=== PATIENT | female | born 1950 | race Caucasian/White ===

== ENCOUNTER 2020-06-17 14:46 | Outpatient (REF) | payer OTHER, SELFPAY ==
[2020-06-18 08:57] LABS: COVID-19 Test Negative (Negative)
== END 2020-06-17 14:47 | disposition home or self-care (01) ==
LOC: HO.EMPCOV 14:46
PROVIDERS: PCP Internal Medicine; Visit Provider Internal Medicine
DX: Z20.828 Contact with and (suspected) exposure to other viral communicable diseases (principal)
CPT/HCPCS: 87635; C9803

== ENCOUNTER 2020-09-05 13:00 | Outpatient (REF) | payer OTHER, SELFPAY ==
[2020-09-05 13:23] LABS: COVID-19 Test Negative (Negative)
== END 2020-09-05 13:01 | disposition home or self-care (01) ==
LOC: HO.EMPCOV 13:00
PROVIDERS: Visit Provider Internal Medicine
DX: Z20.822 Contact with and (suspected) exposure to COVID-19 (principal)
CPT/HCPCS: 36415; 87635; C9803

== ENCOUNTER → 2020-12-22 14:32 | Outpatient (BNVA) | payer OTHER, SELFPAY | PROVIDERS: PCP Internal Medicine; Visit Provider Internal Medicine | CPT/HCPCS: 99203 ==

== ENCOUNTER 2021-06-19 15:05 | Outpatient (RCR) | payer OTHER, SELFPAY ==
[2021-06-19 15:11] VITALS: BP 131/75; PULSE 93
== END 2021-08-03 13:31 | disposition home or self-care (01) ==
LOC: HO.PT 15:05
PROVIDERS: PCP Internal Medicine; Visit Provider Nurse Practitioner
DX: S76.011D Strain of muscle, fascia and tendon of right hip, subsequent encounter (principal); Z96.641 Presence of right artificial hip joint
CPT/HCPCS: 97110; 97140; 97161

== ENCOUNTER 2021-07-25 07:47 | Outpatient (REF) | payer OTHER, SELFPAY | END 2021-07-25 07:48 | disposition home or self-care (01) | LOC: HO.LAB 07:47 | PROVIDERS: Visit Provider Internal Medicine | DX: Z20.822 Contact with and (suspected) exposure to COVID-19 (principal) | CPT/HCPCS: U0003; U0005 ==

== ENCOUNTER 2023-01-01 09:48 | Outpatient (REF) | payer OTHER, SELFPAY ==
--- NOTE | ~2023-01-01 | MR_ITS ---
EXAMINATION: MR BRAIN WITHOUT AND WITH CONTRAST CLINICAL INFORMATION: Right-sided acoustic neuroma. Vertigo. COMPARISON: None available. TECHNIQUE: Multiplanar, multisequence MRI of the brain was obtained using a skull base protocol without and following the administration of 8 mL of Gadavist intravenous contrast. FINDINGS: No focal restricted diffusion is demonstrated to suggest acute or subacute cerebral ischemia. No evidence of acute or chronic hemorrhagic products on heme-sensitive imaging. Scattered and partially confluent periventricular, deep white matter, and brainstem T2 FLAIR hyperintensities consistent with mild to moderate underlying microangiopathy. Proportional prominence of the ventricles and sulcal spaces without evidence of obstructive hydrocephalus. No abnormal mass effect. No midline shift. Normal appearance of the pituitary gland. Normal positioning of the cerebellar tonsils. No mass of the cerebellopontine angles. Normal appearance of the cranial nerve V, VII, and VIII nerve roots. No edema or vascular loops near the nerve root entry sites. Normal appearance of the internal auditory canals without enhancing mass lesions. No abnormal enhancement along the course of the facial nerves bilaterally. Normal appearance of the labyrinthine structures without loss of T2 signal or abnormal enhancement. Normal arterial and venous vascular flow voids are present. No abnormal intracranial contrast enhancement. Normal, homogeneous marrow signal. Mild mucosal thickening of the paranasal sinuses. Moderate rightward nasal septal deviation with spurring. No signal abnormalities within the mastoids. Moderate left and mild right degenerative arthropathy of the temporomandibular joints. MR/MR head/brain wo/w con IMPRESSION: 1. No acute intracranial abnormalities. No abnormal intracranial enhancement. 2. Mild to moderate underlying microangiopathy and generalized cerebral volume loss. 3. No additional MRI abnormalities to explain the patient's symptoms.
== END 2023-01-01 09:49 | disposition home or self-care (01) ==
LOC: HO.MRI 09:48
PROVIDERS: PCP Internal Medicine; Visit Provider Otolaryngology
DX: D33.3 Benign neoplasm of cranial nerves (principal); H81.4 Vertigo of central origin
CPT/HCPCS: 70553; A9585

== ENCOUNTER 2024-04-16 13:25 | Outpatient (REF) | payer OTHER, SELFPAY ==
--- NOTE | ~2024-04-16 | MM_ITS ---
EXAMINATION: MM SCREENING DIGITAL BREAST TOMOSYNTHESIS, BILATERAL CLINICAL INFORMATION: Screening. Asymptomatic. COMPARISON: Mammography: Comparison is made with available priors TECHNIQUE: Digital breast mammography with tomosynthesis is performed in both the craniocaudal and mediolateral oblique views along with computer-aided detection (CAD). FINDINGS: There are scattered areas of fibroglandular density (ACR BI-RADS breast composition Category b). There are no significant masses, abnormal calcifications, or other abnormalities. MM/MM tomosynthesis screening BI IMPRESSION: No mammographic evidence of malignancy. ASSESSMENT: BI-RADS BI-RADS 1 - Negative RECOMMENDATION: Routine annual mammography screening. 1 year F/U This examination should not preclude the clinical evaluation of a suspicious palpable abnormality. This patient's information was entered into a reminder system with a target due date for their next mammogram. Electronically signed by: Lamar Reynoso DO 04/29/2024 08:22 AM EDT
--- NOTE | ~2024-04-16 | MM_ITS ---
EXAMINATION: BONE DENSITOMETRY CLINICAL INDICATION: Age-related osteoporosis. COMPARISON: This is the patient's baseline examination. TECHNIQUE: Using a [employer] DXA System (software version: 13.1) manufactured by [employer], dual-energy x-ray absorptiometry was performed of the lumbar spine and left hip. The images are of good technical quality. Summary results are attached. FINDINGS: LEFT FEMUR, NECK: BMD 0.702 g/cm2, Z-score -0.7, T-score -2.4, osteopenia. LEFT FEMUR, TOTAL: BMD 0.829 g/cm2, Z-score 0.1, T-score -1.4, osteopenia. AP SPINE L1-L4: BMD 0.763 g/cm2, Z-score -2.0, T-score -3.5, osteoporosis. IDENTIFIED RISK FACTORS: Menopause, hysterectomy, history of fracture (adult), bilateral oophorectomy, thiazide. HISTORY OF FRACTURE: Other. MEDICATIONS: Multivitamin, vitamin D. MM/XR DEXA axial skeleton IMPRESSION: 1. DIAGNOSIS: Osteoporosis based on the lowest T-score value of -3.5 in the lumbar spine applying World Health Organization criteria. 2. 10-YEAR FRACTURE RISK PREDICTION, FRAX: According to the guidelines, FRAX calculation should only be performed on patients in the osteopenia bone density category. Therefore, FRAX was not performed on this patient. 3. Treatment Recommendations: NOF guidelines recommend consideration for treatment in postmenopausal women and men age 50 and older presenting with the following: -A hip or vertebral (clinical or morphometric) fracture. -T-score less than or equal to -2.5 at the femoral neck or spine after appropriate evaluation to exclude secondary causes. -Low bone mass at the hip or spine and a 10-year fracture probability by FRAX of greater than or equal to 3% for hip fracture or greater than or equal to 20% for major osteoporotic fracture based on the [place] adapted WHO algorithm. 4. Other Recommendations: All treatment decisions require clinical judgment and consideration of individual patient factors, including patient preferences, comorbidities, previous drug use, risk factors not captured in the FRAX model (e.g. frailty, falls, vitamin D deficiency, increased bone turnover, interval significant decline in bone density) and possible under or overestimation of fracture risk by FRAX. Additional medical evaluation for secondary cause of low bone mineral density may be appropriate. FUTURE SCAN RECOMMENDATION: People with diagnosed cases of osteoporosis or at high risk for fracture should have regular bone mineral density tests. For patients eligible for Medicare, routine testing is allowed once every 2 years. The testing frequency can be increased to one year for patients who have rapidly progressing disease, those who are receiving or discontinuing medical therapy to restore bone mass, or have additional risk factors. Electronically signed by: Sasha Purdy MD 05/05/2024 08:38 AM EDT
== END 2024-04-16 13:26 | disposition home or self-care (01) ==
LOC: HO.MAMMO 13:25
PROVIDERS: PCP Internal Medicine; Visit Provider Physician Assistant
DX: Z12.31 Encounter for screening mammogram for malignant neoplasm of breast (principal); M81.0 Age-related osteoporosis without current pathological fracture
CPT/HCPCS: 77063; 77067; 77080

== ENCOUNTER → 2024-04-16 13:45 | Outpatient (BNV) | payer OTHER, SELFPAY | PROVIDERS: PCP Internal Medicine; Visit Provider Internal Medicine | DX: Z12.31 Encounter for screening mammogram for malignant neoplasm of breast (principal) | CPT/HCPCS: 77063; 77067 ==

== ENCOUNTER → 2025-04-22 13:30 | Outpatient (BNV) | payer OTHER, SELFPAY | PROVIDERS: PCP Obstetrics & Gynecology; Visit Provider Internal Medicine | DX: Z12.31 Encounter for screening mammogram for malignant neoplasm of breast (principal) | CPT/HCPCS: 77063; 77067 ==

== ENCOUNTER 2025-04-22 13:45 | Outpatient (REF) | payer OTHER, SELFPAY ==
--- OUTSIDE RECORDS SUMMARY | 2024-11-24 10:00 | XMS_ITS ---
Author Organization [facility] [address] Address [address] [place] [address] Care Team Providers Care Machine Spring Former Name Role Phone DENISA COLLINS Unavailable [phone] REASON FOR VISIT 3 week f/u Encounters Encounter Location Date Provider Diagnosis [facility] [address] [place] [address] 11/24/2024 DENISA COLLINS Plan Of Treatment Next Appt Details Provider Name:DENISABrittney COLLINS, 04/28/2025 11:30:00 AM, [address] , [place], [address], Progress Notes * TAVO ERICAOB:1950 (75 yo F)Acc No.[id number]:11/24/2024 Progress Notes Patient: ORA WETZEL Provider: Nitin BOLES PA-C :1950 A ge:74 Y S ex:Female Date:11/24/2024 Address:[address] [id number] Subjective: * Chief Complaints: * 1 . 3 week f/u. * Medical History: Objective: * Vitals: Assessment: Plan: * Treatment: * Images: Billing Information: * Visit Code: * Procedure Codes: Care Plan Details* * Electronic signature of FRANKLIN COLLINS PA-C on 04/22/2025 at 06:16 PM EDT Sign off status: Pending * Provider: Nitin BOLES PA-C Date: 0 11/24/2024 Generated for Justin leone/Arline/Hilton on: 0 04/22/2025 06:16 PM EDT
--- OUTSIDE RECORDS SUMMARY | 2025-02-08 10:15 | XMS_ITS ---
Author Organization [facility] [address] Address [address] [place] [address] Care Team Providers Care Suture Gauger Name Role Phone DENISA COLLINS [phone] Encounters Encounter Location Date Provider Diagnosis [facility] [address] [place] [address] 02/08/2025 DENISA COLLINS Plan Of Treatment Next Appt Details Provider Name:DENISA COLLINS, 04/28/2025 11:30:00 AM, [address], [place], [address], Progress Notes * TAVO ERICAOB:1950 (75 yo F)Acc No.[id number]:02/08/2025 Progress Notes Patient: ORA WETZEL Provider: Nitin BOLES PA-C :1950 A ge:75 Y S ex:Female Date:02/08/2025 Address:[address], [id number] Subjective: * Chief Complaints: * * Medical History: Objective: * Vitals: Assessment: Plan: * Treatment: * Images: Billing Information: * Visit Code: * Procedure Codes: Care Plan Details* * Electronic signature of FRANKLIN COLLINS PA-C on 04/22/2025 at 06:16 PM EDT Sign off status: Pending * Provider: Nitin BOLES PA-C Date: 0 02/08/2025 Generated for Justin leone/Arline/Harrysmitting on: 0 04/22/2025 06:16 PM EDT
--- OUTSIDE RECORDS SUMMARY | 2025-02-16 06:45 | XMS_ITS ---
Author Organization [facility] [address] Address [address] [place] [address] Care Team Providers Care Offline Cutter Name Role Phone DENISA COLLINS Unavailable [phone] Medications Medication SIG (Take, Route, Frequency, Duration) Notes Start Date End Date Status Lisinopril 10 MG TAKE 1 TABLET BY MOUTH EVERY OTHER DAY FOR 90 DAYS; Duration: 90 Active Albuterol Sulfate HFA 108 (90 Base) MCG/ACT 1 puff as needed Inhalation every 4 hrs; Duration: 30 days Active Pantoprazole Sodium 40 MG TAKE 1 TABLET BY MOUTH EVERY DAY; Duration: 90 Active buPROPion HCl ER (XL) 300 MG 1 tablet in the morning Orally Once a day; Duration: 90 days Active hydroCHLOROthiazide 12.5 MG 1 tablet in the morning Oral Once a day; Duration: 90 days EOD alternate with lisinopril Active Mirabegron ER 50 MG 1 tablet Orally Once a day Active Alendronate Sodium 70 MG 1 tablet 30 minutes before the first food, beverage or medicine of the day with plain water Orally once weekly; Duration: 90 days 05/07/2024 Active Multi Vitamin Daily - 1 tablet Orally Once a day Active Encounters Encounter Location Date Provider Diagnosis [facility] [address] [place] [address] 02/16/2025 DENISA COLLINS Plan Of Treatment Next Appt Details Provider Name:DENISA COLLINS, 04/28/2025 11:30:00 AM, [address], [place], [address], Progress Notes * ERICA VOOB:1950 (75 yo F)Acc No.[id number]:02/16/2025 Progress Notes Patient: ORA WETZEL Provider: Narendra BOLES PA-C :1950 A ge:75 Y S ex:Female Date:02/16/2025 Address:[address] [place] [address] , [facility], [id number] Subjective: * Chief Complaints: * * Medical History: * Medications: T aking Alendronate Sodium 70 MG Tablet 1 tablet 30 minutes before the first food, beverage or medicine of the day with plain water Orally once weekly , Taking Mirabegron ER 50 MG Tablet Extended Release 24 Hour 1 tablet Orally Once a day , Taking Multi Vitamin Daily - Tablet 1 tablet Orally Once a day , Taking Lisinopril 10 MG Tablet TAKE 1 TABLET BY MOUTH EVERY OTHER DAY FOR 90 DAYS , Taking Pantoprazole Sodium 40 MG Tablet Delayed Release TAKE 1 TABLET BY MOUTH EVERY DAY , Taking hydroCHLOROthiazide 12.5 MG Tablet 1 tablet in the morning Oral Once a day , Notes to Pharmacist: EOD alternate with lisinopril, Taking buPROPion HCl ER (XL) 300 MG Tablet Extended Release 24 Hour 1 tablet in the morning Orally Once a day , Taking Albuterol Sulfate HFA 108 (90 Base) MCG/ACT Aerosol Solution 1 puff as needed Inhalation every 4 hrs Objective: * Vitals: Assessment: Plan: * Treatment: * Procedure Codes: 9 9199 NO SHOW OFFICE VISIT * Images: Billing Information: * Visit Code: * Procedure Codes: 55314 NO SHOW OFFICE VISIT. Care Plan Details* * Electronic signature of FRANKLIN COLLINS PA-C on 04/22/2025 at 06:16 PM EDT Sign off status: Pending * Provider: Narendra BOLES PA-C Date: 0 02/16/2025 Generated for Justin leone/Arline/Hilton on: 04/22/2025 06:16 PM EDT
--- OUTSIDE RECORDS SUMMARY | 2025-04-22 18:17 | XMS_ITS | Patient Health Record ---
Author Organization [facility] [address] Address [address] [place] [address] Care Team Providers Care Baggage And Mail Agent Name Role Phone DENISA COLLINS Unavailable [phone] MORE WALDEN Unavailable [phone] JERRICAROBERT Gilliam Unavailable [phone] Allergies Allergen (clinical drug ingredient) Drug/Non Drug Allergy documented on EMR Reaction Allergy Type Onset Date Status seasonal (uncoded) Unknown Allergy A ctive Results Component Value Reference Range Notes Comp. Metabolic Panel (14)-3 [id number] Reviewed date:10/07/2024 09:45:39 AM Interpretation: Performing Lab:[facility], [address] [place] [address], [place], Phone - [phone], Director - Joseph Notes/Report: Glucose 89 70-99 mg/dL BUN 22 8-27 mg/dL Creatinine 1.07 0.57-1.00 mg/dL eGFR 55 >59 mL/min/1.73 BUN/Creatinine Ratio 21 12-28 Sodium 137 134-144 mmol/L Potassium 4.4 3.5-5.2 mmol/L Chloride 100 96-106 mmol/L Carbon Dioxide, Total 24 20-29 mmol/L Calcium 8.7 8.7-10.3 mg/dL Protein, Total 6.2 6.0-8.5 g/dL Albumin 3.9 3.8-4.8 g/dL Globulin, Total 2.3 1.5-4.5 g/dL Bilirubin, Total <0.2 0.0-1.2 mg/dL Alkaline Phosphatase 67 44-121 IU/L AST (SGOT) 18 0-40 IU/L ALT (SGPT) 15 0-32 IU/L Lipid Panel-[id number] Reviewed date:10/07/2024 09:48:42 AM Interpretation: Performing Lab:[facility], [address] [place] [address], Phone - [phone], Director - MDJodry Notes/Report: Cholesterol, Total 201 100-199 mg/dL Triglycerides 116 0-149 mg/dL HDL Cholesterol 60 >39 mg/dL VLDL Cholesterol Colin 21 5-40 mg/dL LDL Chol Calc (NIH) 120 0-99 mg/dL Hemoglobin C0n-[id number] Reviewed date:10/07/2024 09:45:56 AM Interpretation: Performing Lab:[facility], [address] [place] [address], Phone - [phone], Director - MDJodry Notes/Report: Hemoglobin A1c 5.7 4.8-5.6 % . Prediabetes: 5.7 - 6.4 Diabetes: >6.4 Glycemic control for adults with diabetes: <7.0 Comp. Metabolic Panel (14)-3 Reviewed date:06/15/2024 11:01:47 AM Interpretation: Performing Lab:[facility], [address] [place] [address], Phone - [phone], Director - MDJodry Notes/Report: Glucose 92 70-99 mg/dL BUN 16 8-27 mg/dL Creatinine 1.12 0.57-1.00 mg/dL eGFR 52 >59 mL/min/1.73 BUN/Creatinine Ratio 14 12-28 Sodium 136 134-144 mmol/L Potassium 4.6 3.5-5.2 mmol/L Chloride 98 96-106 mmol/L Carbon Dioxide, Total 24 20-29 mmol/L Calcium 9.1 8.7-10.3 mg/dL Protein, Total 6.3 6.0-8.5 g/dL Albumin 4.0 3.8-4.8 g/dL Globulin, Total 2.3 1.5-4.5 g/dL Bilirubin, Total 0.3 0.0-1.2 mg/dL Alkaline Phosphatase 96 44-121 IU/L AST (SGOT) 18 0-40 IU/L ALT (SGPT) 12 0-32 IU/L Lipid Panel-[id number] Reviewed date:06/05/2024 11:46:55 AM Interpretation: Performing Lab:[facility] [place], [address] [place] [address], Phone - [phone], Director - Joseph Notes/Report: Cholesterol, Total 263 100-199 mg/dL Triglycerides 138 0-149 mg/dL HDL Cholesterol 71 >39 mg/dL VLDL Cholesterol Colin 24 5-40 mg/dL LDL Chol Calc ([facility]) 168 0-99 mg/dL CBC With Differential/Platel et-[id number] Reviewed date:06/11/2024 11:41:38 AM Interpretation: Performing Lab:[facility] [place], [address] [place] [address], Phone - [phone], Director - Joseph Notes/Report: WBC 4.7 3.4-10.8 x10E3/uL RBC 3.98 3.77-5.28 x10E6/uL Hemoglobin 11.6 11.1-15.9 g/dL Hematocrit 36.4 34.0-46.6 % MCV 92 79-97 fL MCH 29.1 26.6-33.0 pg MCHC 31.9 31.5-35.7 g/dL RDW 12.8 11.7-15.4 % Platelets 238 150-450 x10E3/uL Neutrophils 64 Not Estab. % Lymphs 23 Not Estab. % Monocytes 9 Not Estab. % Eos 3 Not Estab. % Basos 1 Not Estab. % Neutrophils (Absolute) 3.0 1.4-7.0 x10E3/uL Lymphs (Absolute) 1.1 0.7-3.1 x10E3/uL Monocytes(Absolute) 0.4 0.1-0.9 x10E3/uL Eos (Absolute) 0.1 0.0-0.4 x10E3/uL Baso (Absolute) 0.1 0.0-0.2 x10E3/uL Immature Granulocytes 0 Not Estab. % Immature Grans (Abs) 0.0 0.0-0.1 x10E3/uL Urinalysis, Complete-[id number] Reviewed date:06/15/2024 11:01:57 AM Interpretation: Performing Lab:[facility] [place], [address] [place] [address], Phone - [phone], Director - Joseph Notes/Report: Specific [place] 1.007 1.005-1.030 pH 8.5 5.0-7.5 Urine-Color Yellow Yellow Appearance Clear Clear WBC Esterase 1+ Negative Protein Negative Negative/Trace Glucose Negative Negative Ketones Negative Negative Occult Blood Negative Negative Bilirubin Negative Negative Urobilinogen,Semi-Qn 0.2 0.2-1.0 mg/dL Nitrite, Urine Negative Negative Microscopic Examination See below: Micr oscopic was indicated and was performed. WBC 6-10 0 - 5 /hpf RBC None seen 0 - 2 /hpf Epithelial Cells (non renal) 0-10 0 - 10 /hpf Casts None seen None seen /lpf Bacteria Many None seen/Few Reason For Referral No Information Medications Medication SIG (Take, Route, Frequency, Duration) Notes Start Date End Date Status Lisinopril 10 MG TAKE 1 TABLET BY MOUTH EVERY OTHER DAY; Duration: 90 Active Mirabegron ER 50 MG 1 tablet Orally Once a day Active Alendronate Sodium 70 MG 1 tablet 30 minutes before the first food, beverage or medicine of the day with plain water Orally once weekly; Duration: 90 days 05/07/2024 Active Multi Vitamin Daily - 1 tablet Orally Once a day Active Albuterol Sulfate HFA 108 (90 Base) MCG/ACT 1 puff as needed Inhalation every 4 hrs; Duration: 30 days Active buPROPion HCl ER (XL) 150 MG 1 tablet in the morning Orally Once a day; Duration: 30 days Active Pantoprazole Sodium 40 MG TAKE 1 TABLET BY MOUTH EVERY DAY; Duration: 90 Active hydroCHLOROthiazide 12.5 MG 1 tablet in the morning Oral Once a day; Duration: 90 days EOD alternate with lisinopril Active Immunizations Vaccine Route Administration Date Status Comme nts Influenza, high dose seasonal IM Intramuscular 04/10/2023 Administered Zoster Unknown 04/28/2019 Administered Zoster IM Intramuscular 04/12/2020 Administered Social History Tobacco Use: Social History Observation Description Date Details (start date - stop date) Never Smoker NA - NA Tobacco Use/Smoking Question Answer Notes Are you a nonsmoker Section Notes: Smoking: Patient was a smoker at age 18 and used to smoke half a pack per week. She years ago. Alcohol: Patient notes that she drinks 2x glasses of wine every night due to it helping Drugs: Patient denies any other drug use. Smoking: Patient was a smoker at age 18 and used to smoke half a pack per week. She quit years ago. Alcohol: Patient notes she has not drank any alcohol since a brief relapse on 04/25/22. Drugs: Patient denies any other drug use. Smoking: Patient was a smoker at age 18 and used to smoke half a pack per wee Drugs: Patient denies any other drug use.k. She quit years ago. Alcohol: sobriety Mar 17, 2023 Smoking: Patient was a smoker at age 18 and used to smoke half a pack per week. She years ago. Alcohol: Patient notes that she drinks 2x glasses of wine every night due to it helping Drugs: Patient denies any other drug use. Smoking: Patient was a smoker at age 18 and used to smoke half a pack per week. She years ago. Alcohol: Patient notes that she drinks 2x glasses of wine every night due to it helping Drugs: Patient denies any other drug use. Smoking: Patient was a smoker at age 18 and used to smoke half a pack per week. She years ago. Alcohol: Patient notes that she drinks 2x glasses of wine every night due to it helping Drugs: Patient denies any other drug use. Smoking: Patient was a smoker at age 18 and used to smoke half a pack per week. She years ago. Alcohol: Patient notes that she drinks 2x glasses of wine every night due to it helping Drugs: Patient denies any other drug use. Smoking: Patient was a smoker at age 18 and used to smoke half a pack per week. She years ago. Alcohol: Patient notes that she drinks 2x glasses of wine every night due to it helping Drugs: Patient denies any other drug use. Smoking: Patient was a smoker at age 18 and used to smoke half a pack per week. She years ago. Alcohol: Patient notes that she drinks 2x glasses of wine every night due to it helping Drugs: Patient denies any other drug use. Smoking: Patient was a smoker at age 18 and used to smoke half a pack per week. She years ago. Alcohol: Patient notes that she drinks 2x glasses of wine every night due to it helping Drugs: Patient denies any other drug use. Smoking: Patient was a smoker at age 18 and used to smoke half a pack per week. She years ago. Alcohol: Patient notes that she drinks 2x glasses of wine every night due to it helping Drugs: Patient denies any other drug use. Smoking: Patient was a smoker at age 18 and used to smoke half a pack per week. She years ago. Alcohol: Patient notes that she drinks 2x glasses of wine every night due to it helping Drugs: Patient denies any other drug use. Smoking: Patient was a smoker at age 18 and used to smoke half a pack per week. She quit years ago. Alcohol: Patient notes she has not drank any alcohol since a brief relapse on 04/25/22. Drugs: Patient denies any other drug use. Smoking: Patient was a smoker at age 18 and used to smoke half a pack per week. She quit years ago. Alcohol: Patient notes she has not drank any alcohol since a brief relapse on 04/25/22. Drugs: Patient denies any other drug use. Smoking: Patient was a smoker at age 18 and used to smoke half a pack per week. She quit years ago. Alcohol: Patient notes she has not drank any alcohol since a brief relapse on 04/25/22. Drugs: Patient denies any other drug use. Smoking: Patient was a smoker at age 18 and used to smoke half a pack per week. She quit years ago. Alcohol: Patient notes she has not drank any alcohol since a brief relapse on 04/25/22. Drugs: Patient denies any other drug use. Smoking: Patient was a smoker at age 18 and used to smoke half a pack per week. She quit years ago. Alcohol: Patient notes she has not drank any alcohol since a brief relapse on 04/25/22. Drugs: Patient denies any other drug use. Smoking: Patient was a smoker at age 18 and used to smoke half a pack per week. She quit years ago. Alcohol: Patient notes she has not drank any alcohol since a brief relapse on 04/25/22. Drugs: Patient denies any other drug use. Smoking: Patient was a smoker at age 18 and used to smoke half a pack per wee Drugs: Patient denies any other drug use.k. She quit years ago. Alcohol: Patient is celebrating 1 year complete of continuous sobriety Mar 17 of this year2023 Smoking: Patient was a smoker at age 18 and used to smoke half a pack per wee Drugs: Patient denies any other drug use.k. She quit years ago. Alcohol: sobriety Mar 17, 2023 Smoking: Patient was a smoker at age 18 and used to smoke half a pack per week. She years ago. Alcohol: Patient notes that she drinks 2x glasses of wine every night due to it helping Drugs: Patient denies any other drug use. Smoking: Patient was a smoker at age 18 and used to smoke half a pack per week. She years ago. Alcohol: Patient notes that she drinks 2x glasses of wine every night due to it helping Drugs: Patient denies any other drug use. Smoking: Patient was a smoker at age 18 and used to smoke half a pack per week. She years ago. Alcohol: Patient notes that she drinks 2x glasses of wine every night due to it helping Drugs: Patient denies any other drug use. Smoking: Patient was a smoker at age 18 and used to smoke half a pack per week. She years ago. Alcohol: Patient notes that she drinks 2x glasses of wine every night due to it helping Drugs: Patient denies any other drug use. Smoking: Patient was a smoker at age 18 and used to smoke half a pack per week. She years ago. Alcohol: Patient notes that she drinks 2x glasses of wine every night due to it helping Drugs: Patient denies any other drug use. Smoking: Patient was a smoker at age 18 and used to smoke half a pack per week. She quit years ago. Alcohol: Patient notes she has not drank any alcohol since a brief relapse on 04/25/22. Drugs: Patient denies any other drug use. Smoking: Patient was a smoker at age 18 and used to smoke half a pack per week. She quit years ago. Alcohol: Patient notes she has not drank any alcohol since a brief relapse on 04/25/22. Drugs: Patient denies any other drug use. Smoking: Patient was a smoker at age 18 and used to smoke half a pack per week. She quit years ago. Alcohol: Patient notes she has not drank any alcohol since a brief relapse on 04/25/22. Drugs: Patient denies any other drug use. Smoking: Patient was a smoker at age 18 and used to smoke half a pack per week. She quit years ago. Alcohol: Patient notes she has not drank any alcohol since a brief relapse on 04/25/22. Drugs: Patient denies any other drug use. Smoking: Patient was a smoker at age 18 and used to smoke half a pack per wee Drugs: Patient denies any other drug use.k. She quit years ago. Alcohol: sobriety Mar 17, 2023 Smoking: Patient was a smoker at age 18 and used to smoke half a pack per week. She years ago. Alcohol: Patient notes that she drinks 2x glasses of wine every night due to it helping Drugs: Patient denies any other drug use. Smoking: Patient was a smoker at age 18 and used to smoke half a pack per week. She years ago. Alcohol: Patient notes that she drinks 2x glasses of wine every night due to it helping Drugs: Patient denies any other drug use. Smoking: Patient was a smoker at age 18 and used to smoke half a pack per week. She years ago. Alcohol: Patient notes that she drinks 2x glasses of wine every night due to it helping Drugs: Patient denies any other drug use. Problems Problem Type SNOMED Code ICD Code Onset Dates Problem Status W/U Status Risk Notes Problem Pernicious anemia (21342199) Vitamin B12 deficiency anemia due to intrinsic factor deficiency (D51.0) Active confirmed Problem Obesity due to excess calories (218107215) Other obesity due to excess calories (E66.09) Active confirmed Problem Obesity (533918573) Other obesity (E66.8) Active confirmed Problem Obesity (228543669) Obesity, unspecified (E66.9) Active confirmed Problem Moderate recurrent major depression (05175254) Major depressive disorder, recurrent, moderate (F33.1) Active confirmed Problem Insomnia (745354071) Insomnia due to medical condition (G47.01) Active confirmed Problem Essential hypertension (93562881) Essential (primary) hypertension (I10) Active confirmed Problem Gastro-esophageal reflux disease with esophagitis (402540530) Gastro-esophage al reflux disease with esophagitis (K21.0) Active confirmed Patient with diagnosis of reflux diseaseCurrently stable with lifestyle modification Problem Screening for malignant neoplasm of breast (251474884) Encounter for screening mammogram for malignant neoplasm of breast (Z12.31) Active confirmed Problem Diabetes mellitus screening (990565200) Encounter for screening for diabetes mellitus (Z13.1) Active confirmed Problem Screening for osteoporosis (229077540) Encounter for screening for osteoporosis (Z13.820) Active confirmed Problem Obese class II (922569620684044) Body mass index (BMI) 35.0-35.9, adult (Z68.35) Active confirmed Problem Body mass index 35.00 to 39.99 (033985707167131) Body mass index (BMI) 36.0-36.9, adult (Z68.36) Active confirmed Problem Prediabetes (815232628) Prediabetes (R73.03) Active confirmed Problem Colon cancer screening (753239025) Colon cancer screening (Z12.11) Active confirmed Problem Vertigo (764929047) Vertigo (R42) Active confirmed Problem Hyperlipidaemia (34386450) Hyperlipidemia, unspecified hyperlipidemia type (E78.5) Active confirmed Problem Anxiety (03305677) Anxiety (F41.9) Active confirmed Problem Hyperlipoproteine yaritza (0131269) Acquired hyperlipoprotei nemia (E78.5) Active confirmed Problem Adult health examination (067324982) Adult general medical exam (Z00.00) Active confirmed Problem Depressive disorder (disorder) (45410486) Depression, unspecified depression type (F32.9) Active confirmed Patient with diagnosis of depression continue current medication currently stable Problem Seasonal allergy (192755949) Seasonal allergies (J30.2) Active confirmed Problem Tinnitus (94957689) Tinnitus, unspecified laterality (H93.19) Active confirmed Problem Arthralgia of the pelvic region and thigh (173497416) Hip pain, right (M25.551) Active confirmed Problem Hip pain (51892091) Hip pain (M25.559) Active confirmed Problem Diabetes mellitus screening (160080135) Diabetes mellitus screening (Z13.1) Active confirmed Problem Chronic kidney disease stage 3A (disorder) (424338772) Chronic kidney disease, stage 3a (N18.31) Active confirmed Problem Body mass index 30+ - obesity (533704570) Body mass index [BMI]30.0-30.9, adult (Z68.30) Active confirmed Problem Body mass index 30.00 to 34.99 (238338796042840) Body mass index [BMI] 33.0-33.9, adult (Z68.33) Active confirmed Problem Body mass index 30.00 to 34.99 (736255811370067) Body mass index [BMI] 34.0-34.9, adult (Z68.34) Active confirmed Problem Alcoholism (4209655) Alcoholism (F10.20) Active confirmed Problem Incontinence (94716355) Incontinence in female (R32) Active confirmed Problem Chronic kidney disease stage 3A (848458966) Stage 3a chronic kidney disease (N18.31) Active confirmed Problem Alcohol abuse (82338763) Alcohol abuse (F10.10) Active confirmed Problem Bilateral tinnitus (4721976053706) Tinnitus of both ears (H93.13) Active confirmed Problem Nondependent alcohol abuse in remission (719851261) History of alcohol abuse (F10.11) Active confirmed Problem Screening for osteoporosis (766758253) Screening for osteoporosis (Z13.820) Active confirmed Problem Asthma (636835555) Asthma (J45.909) Active confirmed Problem Abnormal metabolic state due to diabetes mellitus (433664673) Abnormal metabolic state due to diabetes mellitus (E11.9) Active confirmed Problem Vitamin D deficiency (14476271) Vitamin D3 deficiency (E55.9) Active confirmed Problem Unable to concentrate (finding) (94458446) Difficulty concentrating (R41.840) Active confirmed Problem Essential hypertension (64649580) Hypertension, essential (I10) Active confirmed Problem Osteoporosis (87387953) Osteoporosis (M81.0) Active confirmed Problem Gastroesophageal reflux disease (262498484) GERD (gastroesophage al reflux disease) (K21.9) Active confirmed Problem Hyperlipidemia (66614581) Hyperlipidemia (E78.5) Active confirmed Problem Obesity (980157144) Obesity (E66.9) Active confirmed Problem History of alcoholism (478469803) History of alcoholism (F10.21) Active confirmed Problem Postmenopausal osteoporosis (310918931) Postmenopausal osteoporosis (M81.0) Active confirmed Vital Signs Heart Rate 91 /min 10/26/2024 Respiratory Rate 16 /min 04/28/2024 Oximetry 98 % 10/26/2024 Blood pressure diastolic 72 mm Hg 10/26/2024 Height 61 in 10/26/2024 Blood pressure systolic 124 mm Hg 10/26/2024 Weight 152.6 lbs 10/07/2024 BMI 28.83 kg/m2 10/07/2024 Encounters Encounter Location Date Provider Diagnosis [facility] [address] [place], [place] 04/23/2024 MORE WALDEN [facility] [address] [place], [place] 05/26/2024 MORE WALDEN [facility] [address] [place] [address] 02/16/2025 [facility] [address] [place] [id number] 04/28/2024 MORE WALDEN History of alcohol a buse F10.11 ; Adult general medical exam Z00.00 ; Osteoporosis M81.0 ; Alcohol abuse F10.10 ; Hyperlipidemia E78.5 ; Incontinence in female R32 ; Major depressive disorder, recurrent, moderate F33.1 ; Postprocedural hypertension I97.3 ; Hypertension, essential I10 ; Stage 3a chronic kidney disease N18.31 and Alcoholism F10.[address] [facility] [address] [place], [place] 05/07/2024 DENISA COLLINS Postmenopausal osteo porosis M81.0 ; Depression, unspecified depression type F32.9 ; Anxiety F41.9 and History of alcoholism F10.[address] [facility] [address] [place], [place] 09/01/2024 DENISA COLLINS Postmenopausal osteo porosis M81.0 ; Wellness examination Z00.00 ; Depression, unspecified depression type F32.9 ; Anxiety F41.9 and History of alcoholism F10.[address] [facility] [address] [place], [place] 10/07/2024 DENISA COLLINS Anxiety F41.9 ; Musc le spasm M62.838 ; Postmenopausal osteoporosis M81.0 ; Depression, unspecified depression type F32.9 ; History of alcoholism F10.21 ; Adult general medical exam Z00.00 ; Chronic kidney disease, stage 3a N18.31 ; Acquired hyperlipoproteinemia E78.5 ; Diabetes mellitus screening Z13.1 ; Abnormal metabolic state due to diabetes mellitus E11.9 and Prediabetes R73.[address] [facility] [address] [place], [place] 10/26/2024 ROBERT JERRICA Left eye pain H57.12 and Hordeolum externum of left lower eyelid H00.[address] [facility] [address] [place], [place] 05/01/20[address] T[address]ITA WALDEN [facility] [address] [place], [place] 07/21/[address] WALDEN [facility] [address] [place], [place] 09/01/2024 TALSARITA WALDEN Chronic kidney disea se, stage 3a N18.31 ; Hyperlipidemia, unspecified hyperlipidemia type E78.5 and Encounter for screening for diabetes mellitus Z13.1 [facility] [address] [address] 10/26/2024 MORE WALDEN [facility] [address] [place] [address] 02/17/2025 DENISA COLLINS [facility] [address] [place] [address] 04/05/2025 DENISABrittney COLLINS [facility] [address] [place] [address] 12/22/2024 MORE WALDEN [facility] [address] [address] 02/06/2025 DENISA COLLINS Assessments Encounter Date Diagnosis (ICD Code) Assessment Notes Treatment Notes Treatment Clinical Notes Section Notes 04/28/2024 Adult general medica l exam (ICD-10 - Z00.00) Ora is a pleasant 74 year old female patient seen in office today following up for urinary frequency after receiving work up. #Incontinence in female - reports improvement on mirabegron. She will trial taking hydrochlorothiazide every other day to see if that allows her to sleep through the night. #Stage 3a Chronic Kidney Disease - CBC, CMP, UA, and lipid panel will be ordered. She understands that we need to verify that her kidneys are working properly. She will be called with any abnormal findings and follow up 05/05/24. #History of alcohol abuse - She is doing very well, and has been sober for over 1 year without relapse. She is very involved with AA, prays daily, and feels confident in and proud of her sobriety. #Osteoporosis - She received a DEXA scan and has ordered the results for the office. Should receive in next two weeks #Major Depressive Disorder - She will continue without the Vraylar, as her symptoms have improved with improved sleep quality. #Hypertension - She is well managed and will continue taking Lisinopril daily. HCTZ will be taken once every other day to reduce urinary frequency She will receive the MICC B12 shot today and the flu shot, both in office. She will f/u 04/824 to review lab work. 04/28/2024 History of alcohol abuse (ICD-10 - F10.11) Ora is a pleasant 74 year old female patient seen in office today following up for urinary frequency after receiving work up. #Incontinence in female - reports improvement on mirabegron. She will trial taking hydrochlorothiazide every other day to see if that allows her to sleep through the night. #Stage 3a Chronic Kidney Disease - CBC, CMP, UA, and lipid panel will be ordered. She understands that we need to verify that her kidneys are working properly. She will be called with any abnormal findings and follow up 05/05/24. #History of alcohol abuse - She is doing very well, and has been sober for over 1 year without relapse. She is very involved with AA, prays daily, and feels confident in and proud of her sobriety. #Osteoporosis - She received a DEXA scan and has ordered the results for the office. Should receive in next two weeks #Major Depressive Disorder - She will continue without the Vraylar, as her symptoms have improved with improved sleep quality. #Hypertension - She is well managed and will continue taking Lisinopril daily. HCTZ will be taken once every other day to reduce urinary frequency She will receive the MICC B12 shot today and the flu shot, both in office. She will f/u 04/824 to review lab work. 05/07/2024 Depression, unspecified depression type (ICD-10 - F32.9) Davonte 74-year-old female presents via telehealth to review bone density scan. # Osteoporosis of the spine, osteopenia of the left femur, and left hip. Start vitamin D and calcium, as well as alendronate once weekly. Discussed proper use, side effects, as well as risk factors to discontinue medication including but not limited to jaw pain. Will bone density 03/2024, will be due again 03/2026. # Asthma: Albuterol as needed # Hypertension: Continue lisinopril hydrochlorothiazide 05/09.5, # Depression: Continue bupropion 300 mg extended release # GERD: Continue pantoprazole 40 mg # Incontinence: Continue oxybutynin 5 mg and mirabegron for overactive bladder symptoms. Patient follow-up in July for complete physical, sooner as needed Patient is seen today via telehealth agreement, with consent of patient. I used the following telehealth technology (telephone/[facility]/ skype) during this visit This encounter is appropriate and reasonable under the circumstances given the patient's particular presentation. The patient has been advised of the potential risks and limitations of this mode of treatment Including but not limited to the absence of in person physical examination,and has agreed to be treated in a remote fashion in spite of this. Any and all patient questions have been answered. The patient also has been advised to contact this office for worsening conditions or problems and seek medical treatment and/or call 911 if the patient deems either necessary All quetsions answered to patients satisfaction. Patient verbalized understanding of diagnosis and treatments explained. To call sooner prior to next visit it any questions/concerns arise. Case discussed with collaborating physician Traci Walden who reviewed the assessment and plan. Chart, medications, labs, vital signs reviewed. Dictation was accomplished with the use of [employer] voice recognition software, prone to medical misidentifications and grammatical errors. This is unintentional and the practitioner does try to identify and correct these, but some could still be present. Please do not hesitate to contact practitioner for clarification. 05/07/2024 Postmenopausal osteoporosis (ICD-10 - M81.0) Pleasant 74-year-old female presents via telehealth to review bone density scan. # Osteoporosis of the spine, osteopenia of the left femur, and left hip. Start vitamin D and calcium, as well as alendronate once weekly. Discussed proper use, side effects, as well as risk factors to discontinue medication including but not limited to jaw pain. Will bone density 03/2024, will be due again 03/2026. # Asthma: Albuterol as needed # Hypertension: Continue lisinopril hydrochlorothiazide 05/09.5, # Depression: Continue bupropion 300 mg extended release # GERD: Continue pantoprazole 40 mg # Incontinence: Continue oxybutynin 5 mg and mirabegron for overactive bladder symptoms. Patient follow-up in July for complete physical, sooner as needed Patient is seen today via telehealth agreement, with consent of patient. I used the following telehealth technology (telephone/[facility]/ skype) during this visit This encounter is appropriate and reasonable under the circumstances given the patient's particular presentation. The patient has been advised of the potential risks and limitations of this mode of treatment Including but not limited to the absence of in person physical examination,and has agreed to be treated in a remote fashion in spite of this. Any and all patient questions have been answered. The patient also has been advised to contact this office for worsening conditions or problems and seek medical treatment and/or call 911 if the patient deems either necessary All quetsions answered to patients satisfaction. Patient verbalized understanding of diagnosis and treatments explained. To call sooner prior to next visit it any questions/concerns arise. Case discussed with collaborating physician Traci Walden who reviewed the assessment and plan. Chart, medications, labs, vital signs reviewed. Dictation was accomplished with the use of [employer] voice recognition software, prone to medical misidentifications and grammatical errors. This is unintentional and the practitioner does try to identify and correct these, but some could still be present. Please do not hesitate to contact practitioner for clarification. 09/01/2024 Wellness examination (ICD-10 - Z00.00) Patient is a pleasant 74-year-old female who presents the office for a complete physical exam. # Up-to-date on all vaccines, and routine screening. Will obtain colonoscopy record that she had in 2021 after positive Cologuard. Due for bone density in 2025. PHQ-9 completed in office today. Healthcare proxy completed 09/01/2024. # Alcoholism: Patient has been sober since February 2023. She is very pleased with progress and attends AA meetings once daily. 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 # Osteoporosis of the spine, osteopenia of the left femur, and left hip. Continue vitamin D and calcium, as well as alendronate once weekly. Patient been tolerating medication well Discussed proper use, side effects, as well as risk factors to discontinue medication including but not limited to jaw pain. Will bone density 03/2024, will be due again 03/2026. # Asthma: Albuterol as needed # Hyperlipidemia: Cholesterol 06/04/2020 4-63, LDL 168. Recommended cholesterol medications, patient not interested. Will repeat blood work. Discussed coronary calcium scan.History on simvastatin for which she tolerated well but discontinued because of weight loss. She would like to repeat values for labs, and then potentially initiate medication as needed.Clines coronary calcium scan at this time. # Hypertension: Continue lisinopril hydrochlorothiazide 05/09.5, Blood pressure stable # Depression: Continue bupropion 300 mg extended release, States is uncontrolled. Trialed Vraylar but it was too expensive for her insurance did not cover it. History on Celexa with minimal improvement. Will trial sertraline 25 mg, follow-up in 4 to 6 weeks. Discussed proper use, side effects.Declines therapy/psychiatry at this time. Does follow with AA daily. # GERD: Continue pantoprazole 40 mg # Incontinence: Continue oxybutynin 5 mg and mirabegron for overactive bladder symptoms. # Chronic kidney disease: Creatinine 1.12, GFR low at 52, will repeat blood work, consider Medications like Farxiga Follow-up in 6 weeks to assess efficacy/compliance of sertraline/blood work. Patient seen and examined. Comprehensive discussion was done on the following. 1. Nutrition: It is important to follow a healthy diet based on lots of vegetables and legumes and good fat. Avoid processed food and processed carbohydrates. Prepare your own meals. Read labels and avoid high fructose corn syrup, processed chemicals added to increase shelf life and preprepared meals. Avoid fast foods. Eat slowly and plan meals for a week. Try to count calories and be mindful of daily calorie intake. Get into the habit of keeping an eye on your weight by using an appropriate scale. Learn to log exercise and discussed fitness Apps like [employer] which can help keep log off calories taken versus calories burned. Local food should be preferred. Discussed Dirty Dozen Versus Clean Fifteen. Discussed healthy supplements like fish oil, Tumeric, Curcumin, Melatonin, Resveratrol, Probiotics, Vitamin-D, Alpha-Lipoic acid, Vitamin-D and coconut oil. 2. It is important to exercise regularly. Is a good habit to walk at least 30 minutes a day. Gentle weightlifting with standard precautions to protect the back. Finding activity like cycling or hiking and get into the habit of engaging in it. Stretching before and after the exercises important. It is also important to contact me if there are any problems like shortness of breath, chest pain, back pain and joint or muscle pain associated with the exercise. 3. Discussed age appropriate screening guidelines. Colonoscopy needs to start at age 50 with stool for occult blood as appropriate. There is a new test that can test for genetic abnormalities in the stool sample, Cologuard. This would not replace a colonoscopy but could be used as a screening tool for patients who do not want a colonoscopy. We discussed the importance of early detection of colon cancer. 4. Discussed current PSA screening. PSA screening can be done in most patients between age 50 and 65. However early detection of prostate cancer needs to carefully be balanced with complications with treatment. These include incontinence, impotence etc. Each patient should decide if they would like to have this test. 5. Discussed safe driving and no use of smart phone while driving 6. Age-appropriate immunizations were discussed. A tetanus booster is needed every 10 years. Flu vaccine is recommended every year just before the start of the flu season. Shingles vaccine is recommended after age 50 but not all insurances cover it. Pneumonia vaccine is given after age 65 unless there are certain comorbidities for which it is started earlier. 7. Diagnostic labs were discussed. These could include/not limited to CBC CMP and lipids with fasting blood glucose and insulin levels. Vitamin D and hemoglobin A1c testing might be appropriate. All quetsions answered to patients satisfaction. Patient verbalized understanding of diagnosis and treatments explained. To call sooner prior to next visit it any questions/concerns arise. Case discussed with collaborating physician Traci Walden who reviewed the assessment and plan. Chart, medications, labs, vital signs reviewed. Dictation was accomplished with the use of [employer] voice recognition software, prone to medical misidentifications and grammatical errors. This is unintentional and the practitioner does try to identify and correct these, but some could still be present. Please do not hesitate to contact practitioner for clarification. 09/01/2024 Postmenopausal osteoporosis (ICD-10 - M81.0) Patient is a pleasant 74-year-old female who presents the office for a complete physical exam. # Up-to-date on all vaccines, and routine screening. Will obtain colonoscopy record that she had in 2021 after positive Cologuard. Due for bone density in 2025. PHQ-9 completed in office today. Healthcare proxy completed 09/01/2024. # Alcoholism: Patient has been sober since February 2023. She is very pleased with progress and attends AA meetings once daily. 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 # Osteoporosis of the spine, osteopenia of the left femur, and left hip. Continue vitamin D and calcium, as well as alendronate once weekly. Patient been tolerating medication well Discussed proper use, side effects, as well as risk factors to discontinue medication including but not limited to jaw pain. Will bone density 03/2024, will be due again 03/2026. # Asthma: Albuterol as needed # Hyperlipidemia: Cholesterol 06/04/2020 4-63, LDL 168. Recommended cholesterol medications, patient not interested. Will repeat blood work. Discussed coronary calcium scan.History on simvastatin for which she tolerated well but discontinued because of weight loss. She would like to repeat values for labs, and then potentially initiate medication as needed.Clines coronary calcium scan at this time. # Hypertension: Continue lisinopril hydrochlorothiazide 05/09.5, Blood pressure stable # Depression: Continue bupropion 300 mg extended release, States is uncontrolled. Trialed Vraylar but it was too expensive for her insurance did not cover it. History on Celexa with minimal improvement. Will trial sertraline 25 mg, follow-up in 4 to 6 weeks. Discussed proper use, side effects.Declines therapy/psychiatry at this time. Does follow with AA daily. # GERD: Continue pantoprazole 40 mg # Incontinence: Continue oxybutynin 5 mg and mirabegron for overactive bladder symptoms. # Chronic kidney disease: Creatinine 1.12, GFR low at 52, will repeat blood work, consider Medications like Farxiga Follow-up in 6 weeks to assess efficacy/compliance of sertraline/blood work. Patient seen and examined. Comprehensive discussion was done on the following. 1. Nutrition: It is important to follow a healthy diet based on lots of vegetables and legumes and good fat. Avoid processed food and processed carbohydrates. Prepare your own meals. Read labels and avoid high fructose corn syrup, processed chemicals added to increase shelf life and preprepared meals. Avoid fast foods. Eat slowly and plan meals for a week. Try to count calories and be mindful of daily calorie intake. Get into the habit of keeping an eye on your weight by using an appropriate scale. Learn to log exercise and discussed fitness Apps like [employer] which can help keep log off calories taken versus calories burned. Local food should be preferred. Discussed Dirty Dozen Versus Clean Fifteen. Discussed healthy supplements like fish oil, Tumeric, Curcumin, Melatonin, Resveratrol, Probiotics, Vitamin-D, Alpha-Lipoic acid, Vitamin-D and coconut oil. 2. It is important to exercise regularly. Is a good habit to walk at least 30 minutes a day. Gentle weightlifting with standard precautions to protect the back. Finding activity like cycling or hiking and get into the habit of engaging in it. Stretching before and after the exercises important. It is also important to contact me if there are any problems like shortness of breath, chest pain, back pain and joint or muscle pain associated with the exercise. 3. Discussed age appropriate screening guidelines. Colonoscopy needs to start at age 50 with stool for occult blood as appropriate. There is a new test that can test for genetic abnormalities in the stool sample, Cologuard. This would not replace a colonoscopy but could be used as a screening tool for patients who do not want a colonoscopy. We discussed the importance of early detection of colon cancer. 4. Discussed current PSA screening. PSA screening can be done in most patients between age 50 and 65. However early detection of prostate cancer needs to carefully be balanced with complications with treatment. These include incontinence, impotence etc. Each patient should decide if they would like to have this test. 5. Discussed safe driving and no use of smart phone while driving 6. Age-appropriate immunizations were discussed. A tetanus booster is needed every 10 years. Flu vaccine is recommended every year just before the start of the flu season. Shingles vaccine is recommended after age 50 but not all insurances cover it. Pneumonia vaccine is given after age 65 unless there are certain comorbidities for which it is started earlier. 7. Diagnostic labs were discussed. These could include/not limited to CBC CMP and lipids with fasting blood glucose and insulin levels. Vitamin D and hemoglobin A1c testing might be appropriate. All quetsions answered to patients satisfaction. Patient verbalized understanding of diagnosis and treatments explained. To call sooner prior to next visit it any questions/concerns arise. Case discussed with collaborating physician Traci Walden who reviewed the assessment and plan. Chart, medications, labs, vital signs reviewed. Dictation was accomplished with the use of [employer] voice recognition software, prone to medical misidentifications and grammatical errors. This is unintentional and the practitioner does try to identify and correct these, but some could still be present. Please do not hesitate to contact practitioner for clarification. 09/01/2024 Chronic kidney disease, stage 3a (ICD-10 - N18.31) 10/07/2024 Anxiety (ICD-10 - F41.9) # Up-to-date on all vaccines, and routine screening. Will obtain colonoscopy record that she had in 2021 after positive Cologuard. Due for bone density in 2025. Healthcare proxy completed 09/01/2024. # Alcoholism: Patient has been sober since February 2023. She is very pleased with progress and attends AA meetings once daily. 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 # Osteoporosis of the spine, osteopenia of the left femur, and left hip. Continue vitamin D and calcium, as well as alendronate once weekly. Patient been tolerating medication well Discussed proper use, side effects, as well as risk factors to discontinue medication including but not limited to jaw pain. Will bone density 03/2024, will be due again 03/2026. # Asthma: Albuterol as needed # Hyperlipidemia: Cholesterol 06/04/2020 4-63, LDL 168. Recommended cholesterol medications, patient not interested. Repeat blood work 09/2024 showing total cholesterol 201. Patient is very pleased. Repeat in 4 months. Discussed coronary calcium scan.History on simvastatin for which she tolerated well but discontinued because of weight loss. She would like to repeat values for labs, and then potentially initiate medication as needed.Declines coronary calcium scan at this time. # Hypertension: Continue lisinopril hydrochlorothiazide 05/09.5, Blood pressure stable # Depression: Continue bupropion 300 mg extended release, States is uncontrolled. Trialed Vraylar but it was too expensive for her insurance did not cover it. History on Celexa with minimal improvement. Trialed sertraline 25 mg, discontinued after she experienced tremors. She is feeling better and not interested in any alternative but will trial HPA adapt. Discussed proper use, side effects.Declines therapy/psychiatry at this time. Does follow with AA daily. # GERD: Continue pantoprazole 40 mg # Incontinence: Continue oxybutynin 5 mg and mirabegron for overactive bladder symptoms. # Chronic kidney disease: Creatinine 1.12, GFR low at 52, Repeat blood work showing improved kidney function creatinine 1.0, GFR 55. Will repeat in 3 to 4 months. # Back spasm: No red flag symptoms. Trial low-dose muscle relaxer, massage, heat, lidocaine patches as needed. If no improvement consider imaging/PT. Patient understanding Follow-up in 3 to 4 months for repeat blood work, sooner as needed All quetsions answered to patients satisfaction. Patient verbalized understanding of diagnosis and treatments explained. To call sooner prior to next visit it any questions/concerns arise. Case discussed with collaborating physician Traci Walden who reviewed the assessment and plan. Chart, medications, labs, vital signs reviewed. Dictation was accomplished with the use of [employer] voice recognition software, prone to medical misidentifications and grammatical errors. This is unintentional and the practitioner does try to identify and correct these, but some could still be present. Please do not hesitate to contact practitioner for clarification. 10/07/2024 Muscle spasm (ICD-10 - M62.838) # Up-to-date on all vaccines, and routine screening. Will obtain colonoscopy record that she had in 2021 after positive Cologuard. Due for bone density in 2025. Healthcare proxy completed 09/01/2024. # Alcoholism: Patient has been sober since February 2023. She is very pleased with progress and attends AA meetings once daily. 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 # Osteoporosis of the spine, osteopenia of the left femur, and left hip. Continue vitamin D and calcium, as well as alendronate once weekly. Patient been tolerating medication well Discussed proper use, side effects, as well as risk factors to discontinue medication including but not limited to jaw pain. Will bone density 03/2024, will be due again 03/2026. # Asthma: Albuterol as needed # Hyperlipidemia: Cholesterol 06/04/2020 4-63, LDL 168. Recommended cholesterol medications, patient not interested. Repeat blood work 09/2024 showing total cholesterol 201. Patient is very pleased. Repeat in 4 months. Discussed coronary calcium scan.History on simvastatin for which she tolerated well but discontinued because of weight loss. She would like to repeat values for labs, and then potentially initiate medication as needed.Declines coronary calcium scan at this time. # Hypertension: Continue lisinopril hydrochlorothiazide 05/09.5, Blood pressure stable # Depression: Continue bupropion 300 mg extended release, States is uncontrolled. Trialed Vraylar but it was too expensive for her insurance did not cover it. History on Celexa with minimal improvement. Trialed sertraline 25 mg, discontinued after she experienced tremors. She is feeling better and not interested in any alternative but will trial HPA adapt. Discussed proper use, side effects.Declines therapy/psychiatry at this time. Does follow with AA daily. # GERD: Continue pantoprazole 40 mg # Incontinence: Continue oxybutynin 5 mg and mirabegron for overactive bladder symptoms. # Chronic kidney disease: Creatinine 1.12, GFR low at 52, Repeat blood work showing improved kidney function creatinine 1.0, GFR 55. Will repeat in 3 to 4 months. # Back spasm: No red flag symptoms. Trial low-dose muscle relaxer, massage, heat, lidocaine patches as needed. If no improvement consider imaging/PT. Patient understanding Follow-up in 3 to 4 months for repeat blood work, sooner as needed All quetsions answered to patients satisfaction. Patient verbalized understanding of diagnosis and treatments explained. To call sooner prior to next visit it any questions/concerns arise. Case discussed with collaborating physician Traci Walden who reviewed the assessment and plan. Chart, medications, labs, vital signs reviewed. Dictation was accomplished with the use of [employer] voice recognition software, prone to medical misidentifications and grammatical errors. This is unintentional and the practitioner does try to identify and correct these, but some could still be present. Please do not hesitate to contact practitioner for clarification. 10/26/2024 Hordeolum externum o f left lower eyelid (ICD-10 - H00.015) Constanza is a pleasant 74-year-old female who presents to the office today for an urgent visit. #Chalazion: At this time patient does have lower eyelid swelling with a punctum, erythema present on left lower eyelid. Ecchymoses present on patient's lower eyelid as well. Most likely vascular dilation from warm compresses, however consider lingering infection. If doxycycline and erythromycin do not clear infection consider CT of the orbits. Patient given handwritten prescription for both of her medications todayReassuring that patient does not have any hyphema, anterior chamber hemorrhage. Denies any vision changes or blurry vision. Encouraged to contact her eye doctor if she does not notice improvement by the end of the week. All questions have been answered to patient's satisfaction. Patient verbalized understanding of diagnosis and treatments explained. Advised to call sooner prior to next visit it any questions/concerns arise. Case discussed with Swetha MCCAULEY who reviewed the assessment and plan. Chart, medications, labs, vital signs reviewed. Dictation was accomplished with the use of [employer] voice recognition software, which is prone to medical misidentifications and grammatical errors. This are unintentional and the practitioner does try to identify and correct these, but some could still be present. Please do not hesitate to contact practitioner for clarification. 10/26/2024 Left eye pain (ICD-1 0 - H57.12) Constanza is a pleasant 74-year-old female who presents to the office today for an urgent visit. #Chalazion: At this time patient does have lower eyelid swelling with a punctum, erythema present on left lower eyelid. Ecchymoses present on patient's lower eyelid as well. Most likely vascular dilation from warm compresses, however consider lingering infection. If doxycycline and erythromycin do not clear infection consider CT of the orbits. Patient given handwritten prescription for both of her medications todayReassuring that patient does not have any hyphema, anterior chamber hemorrhage. Denies any vision changes or blurry vision. Encouraged to contact her eye doctor if she does not notice improvement by the end of the week. All questions have been answered to patient's satisfaction. Patient verbalized understanding of diagnosis and treatments explained. Advised to call sooner prior to next visit it any questions/concerns arise. Case discussed with Swetha MCCAULEY who reviewed the assessment and plan. Chart, medications, labs, vital signs reviewed. Dictation was accomplished with the use of [employer] voice recognition software, which is prone to medical misidentifications and grammatical errors. This are unintentional and the practitioner does try to identify and correct these, but some could still be present. Please do not hesitate to contact practitioner for clarification. 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 Will obtain colonoscopy record that she had in 2021 after positive Cologuard. Due for bone density in 2025. Healthcare proxy completed 09/01/2024. # Alcoholism: Patient has been sober since February 2023. She is very pleased with progress and attends AA meetings once daily. 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 # Osteoporosis of the spine, osteopenia of the left femur, and left hip. Continue vitamin D and calcium, as well as alendronate once weekly. Patient been tolerating medication well Discussed proper use, side effects, as well as risk factors to discontinue medication including but not limited to jaw pain. Will bone density 03/2024, will be due again 03/2026. # Asthma: Albuterol as needed # Hyperlipidemia: Cholesterol 06/04/2020 4-63, LDL 168. Recommended cholesterol medications, patient not interested. Repeat blood work 09/2024 showing total cholesterol 201. Patient is very pleased. Repeat in 4 months. Discussed coronary calcium scan.History on simvastatin for which she tolerated well but discontinued because of weight loss. She would like to repeat values for labs, and then potentially initiate medication as needed.Declines coronary calcium scan at this time. # Hypertension: Continue lisinopril hydrochlorothiazide 05/09.5, Blood pressure stable # Depression: Continue bupropion 300 mg extended release, States is uncontrolled. Trialed Vraylar but it was too expensive for her insurance did not cover it. History on Celexa with minimal improvement. Trialed sertraline 25 mg, discontinued after she experienced tremors. She is feeling better and not interested in any alternative but will trial HPA adapt. Discussed proper use, side effects.Declines therapy/psychiatry at this time. Does follow with AA daily. # GERD: Continue pantoprazole 40 mg # Incontinence: Continue oxybutynin 5 mg and mirabegron for overactive bladder symptoms. # Chronic kidney disease: Creatinine 1.12, GFR low at 52, Repeat blood work showing improved kidney function creatinine 1.0, GFR 55. Will repeat in 3 to 4 months. # Back spasm: No red flag symptoms. Trial low-dose muscle relaxer, massage, heat, lidocaine patches as needed. If no improvement consider imaging/PT. Patient understanding Follow-up in 3 to 4 months for repeat blood work, sooner as needed All quetsions answered to patients satisfaction. Patient verbalized understanding of diagnosis and treatments explained. To call sooner prior to next visit it any questions/concerns arise. Case discussed with collaborating physician Traci Walden who reviewed the assessment and plan. Chart, medications, labs, vital signs reviewed. Dictation was accomplished with the use of [employer] voice recognition software, prone to medical misidentifications and grammatical errors. This is unintentional and the practitioner does try to identify and correct these, but some could still be present. Please do not hesitate to contact practitioner for clarification. 09/01/2024 Hyperlipidemia, unspecified hyperlipidemia type (ICD-10 - E78.5) 05/07/2024 Anxiety (ICD-10 - F41.9) Pleasant 74-year-old female presents via telehealth to review bone density scan. # Osteoporosis of the spine, osteopenia of the left femur, and left hip. Start vitamin D and calcium, as well as alendronate once weekly. Discussed proper use, side effects, as well as risk factors to discontinue medication including but not limited to jaw pain. Will bone density 03/2024, will be due again 03/2026. # Asthma: Albuterol as needed # Hypertension: Continue lisinopril hydrochlorothiazide 05/09., # Depression: Continue bupropion 300 mg extended release # GERD: Continue pantoprazole 40 mg # Incontinence: Continue oxybutynin 5 mg and mirabegron for overactive bladder symptoms. Patient follow-up in July for complete physical, sooner as needed Patient is seen today via telehealth agreement, with consent of patient. I used the following telehealth technology (telephone/[facility]/ [employer]) during this visit This encounter is appropriate and reasonable under the circumstances given the patient's particular presentation. The patient has been advised of the potential risks and limitations of this mode of treatment Including but not limited to the absence of in person physical examination,and has agreed to be treated in a remote fashion in spite of this. Any and all patient questions have been answered. The patient also has been advised to contact this office for worsening conditions or problems and seek medical treatment and/or call 911 if the patient deems either necessary All quetsions answered to patients satisfaction. Patient verbalized understanding of diagnosis and treatments explained. To call sooner prior to next visit it any questions/concerns arise. Case discussed with collaborating physician Traci Walden who reviewed the assessment and plan. Chart, medications, labs, vital signs reviewed. Dictation was accomplished with the use of [employer] voice recognition software, prone to medical misidentifications and grammatical errors. This is unintentional and the practitioner does try to identify and correct these, but some could still be present. Please do not hesitate to contact practitioner for clarification. 09/01/2024 Depression, unspecified depression type (ICD-10 - F32.9) Patient is a pleasant 74-year-old female who presents the office for a complete physical exam. # Up-to-date on all vaccines, and routine screening. Will obtain colonoscopy record that she had in 2021 after positive Cologuard. Due for bone density in 2025. PHQ-9 completed in office today. Healthcare proxy completed 09/01/2024. # Alcoholism: Patient has been sober since February 2023. She is very pleased with progress and attends AA meetings once daily. 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 # Osteoporosis of the spine, osteopenia of the left femur, and left hip. Continue vitamin D and calcium, as well as alendronate once weekly. Patient been tolerating medication well Discussed proper use, side effects, as well as risk factors to discontinue medication including but not limited to jaw pain. Will bone density 03/2024, will be due again 03/2026. # Asthma: Albuterol as needed # Hyperlipidemia: Cholesterol 06/04/2020 4-63, LDL 168. Recommended cholesterol medications, patient not interested. Will repeat blood work. Discussed coronary calcium scan.History on simvastatin for which she tolerated well but discontinued because of weight loss. She would like to repeat values for labs, and then potentially initiate medication as needed.Clines coronary calcium scan at this time. # Hypertension: Continue lisinopril hydrochlorothiazide 05/09.5, Blood pressure stable # Depression: Continue bupropion 300 mg extended release, States is uncontrolled. Trialed Vraylar but it was too expensive for her insurance did not cover it. History on Celexa with minimal improvement. Will trial sertraline 25 mg, follow-up in 4 to 6 weeks. Discussed proper use, side effects.Declines therapy/psychiatry at this time. Does follow with AA daily. # GERD: Continue pantoprazole 40 mg # Incontinence: Continue oxybutynin 5 mg and mirabegron for overactive bladder symptoms. # Chronic kidney disease: Creatinine 1.12, GFR low at 52, will repeat blood work, consider Medications like Farxiga Follow-up in 6 weeks to assess efficacy/compliance of sertraline/blood work. Patient seen and examined. Comprehensive discussion was done on the following. 1. Nutrition: It is important to follow a healthy diet based on lots of vegetables and legumes and good fat. Avoid processed food and processed carbohydrates. Prepare your own meals. Read labels and avoid high fructose corn syrup, processed chemicals added to increase shelf life and preprepared meals. Avoid fast foods. Eat slowly and plan meals for a week. Try to count calories and be mindful of daily calorie intake. Get into the habit of keeping an eye on your weight by using an appropriate scale. Learn to log exercise and discussed fitness Apps like [employer] which can help keep log off calories taken versus calories burned. Local food should be preferred. Discussed D[employer]zen Vers[employer] Clean Fifteen. Discussed healthy supplements like fish oil, Tumeric, Curcumin, Melatonin, Resveratrol, Probiotics, Vitamin-D, Alpha-Lipoic acid, Vitamin-D and coconut oil. 2. It is important to exercise regularly. Is a good habit to walk at least 30 minutes a day. Gentle weightlifting with standard precautions to protect the back. Finding activity like cycling or hiking and get into the habit of engaging in it. Stretching before and after the exercises important. It is also important to contact me if there are any problems like shortness of breath, chest pain, back pain and joint or muscle pain associated with the exercise. 3. Discussed age appropriate screening guidelines. Colonoscopy needs to start at age 50 with stool for occult blood as appropriate. There is a new test that can test for genetic abnormalities in the stool sample, Cologuard. This would not replace a colonoscopy but could be used as a screening tool for patients who do not want a colonoscopy. We discussed the importance of early detection of colon cancer. 4. Discussed current PSA screening. PSA screening can be done in most patients between age 50 and 65. However early detection of prostate cancer needs to carefully be balanced with complications with treatment. These include incontinence, impotence etc. Each patient should decide if they would like to have this test. 5. Discussed safe driving and no use of smart phone while driving 6. Age-appropriate immunizations were discussed. A tetanus booster is needed every 10 years. Flu vaccine is recommended every year just before the start of the flu season. Shingles vaccine is recommended after age 50 but not all insurances cover it. Pneumonia vaccine is given after age 65 unless there are certain comorbidities for which it is started earlier. 7. Diagnostic labs were discussed. These could include/not limited to CBC CMP and lipids with fasting blood glucose and insulin levels. Vitamin D and hemoglobin A1c testing might be appropriate. All quetsions answered to patients satisfaction. Patient verbalized understanding of diagnosis and treatments explained. To call sooner prior to next visit it any questions/concerns arise. Case discussed with collaborating physician Traci Walden who reviewed the assessment and plan. Chart, medications, labs, vital signs reviewed. Dictation was accomplished with the use of [employer] voice recognition software, prone to medical misidentifications and grammatical errors. This is unintentional and the practitioner does try to identify and correct these, but some could still be present. Please do not hesitate to contact practitioner for clarification. 04/28/2024 Osteoporosis (ICD-10 - M81.0) Ora is a pleasant 74 year old female patient seen in office today following up for urinary frequency after receiving work up. #Incontinence in female - reports improvement on mirabegron. She will trial taking hydrochlorothiazide every other day to see if that allows her to sleep through the night. #Stage 3a Chronic Kidney Disease - CBC, CMP, UA, and lipid panel will be ordered. She understands that we need to verify that her kidneys are working properly. She will be called with any abnormal findings and follow up 05/05/24. #History of alcohol abuse - She is doing very well, and has been sober for over 1 year without relapse. She is very involved with AA, prays daily, and feels confident in and proud of her sobriety. #Osteoporosis - She received a DEXA scan and has ordered the results for the office. Should receive in next two weeks #Major Depressive Disorder - She will continue without the Vraylar, as her symptoms have improved with improved sleep quality. #Hypertension - She is well managed and will continue taking Lisinopril daily. HCTZ will be taken once every other day to reduce urinary frequency She will receive the MICC B12 shot today and the flu shot, both in office. She will f/u 04/824 to review lab work. 04/28/2024 Alcohol abuse (ICD-1 0 - F10.10) Ora is a pleasant 74 year old female patient seen in office today following up for urinary frequency after receiving work up. #Incontinence in female - reports improvement on mirabegron. She will trial taking hydrochlorothiazide every other day to see if that allows her to sleep through the night. #Stage 3a Chronic Kidney Disease - CBC, CMP, UA, and lipid panel will be ordered. She understands that we need to verify that her kidneys are working properly. She will be called with any abnormal findings and follow up 05/05/24. #History of alcohol abuse - She is doing very well, and has been sober for over 1 year without relapse. She is very involved with AA, prays daily, and feels confident in and proud of her sobriety. #Osteoporosis - She received a DEXA scan and has ordered the results for the office. Should receive in next two weeks #Major Depressive Disorder - She will continue without the Vraylar, as her symptoms have improved with improved sleep quality. #Hypertension - She is well managed and will continue taking Lisinopril daily. HCTZ will be taken once every other day to reduce urinary frequency She will receive the MICC B12 shot today and the flu shot, both in office. She will f/u 04/824 to review lab work. 09/01/2024 Anxiety (ICD-10 - F41.9) Patient is a pleasant 74-year-old female who presents the office for a complete physical exam. # Up-to-date on all vaccines, and routine screening. Will obtain colonoscopy record that she had in 2021 after positive Cologuard. Due for bone density in 2025. PHQ-9 completed in office today. Healthcare proxy completed 09/01/2024. # Alcoholism: Patient has been sober since February 2023. She is very pleased with progress and attends AA meetings once daily. 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 # Osteoporosis of the spine, osteopenia of the left femur, and left hip. Continue vitamin D and calcium, as well as alendronate once weekly. Patient been tolerating medication well Discussed proper use, side effects, as well as risk factors to discontinue medication including but not limited to jaw pain. Will bone density 03/2024, will be due again 03/2026. # Asthma: Albuterol as needed # Hyperlipidemia: Cholesterol 06/04/2020 4-63, LDL 168. Recommended cholesterol medications, patient not interested. Will repeat blood work. Discussed coronary calcium scan.History on simvastatin for which she tolerated well but discontinued because of weight loss. She would like to repeat values for labs, and then potentially initiate medication as needed.Clines coronary calcium scan at this time. # Hypertension: Continue lisinopril hydrochlorothiazide 10/12.5, Blood pressure stable # Depression: Continue bupropion 300 mg extended release, States is uncontrolled. Trialed Vraylar but it was too expensive for her insurance did not cover it. History on Celexa with minimal improvement. Will trial sertraline 25 mg, follow-up in 4 to 6 weeks. Discussed proper use, side effects.Declines therapy/psychiatry at this time. Does follow with AA daily. # GERD: Continue pantoprazole 40 mg # Incontinence: Continue oxybutynin 5 mg and mirabegron for overactive bladder symptoms. # Chronic kidney disease: Creatinine 1.12, GFR low at 52, will repeat blood work, consider Medications like Farxiga Follow-up in 6 weeks to assess efficacy/compliance of sertraline/blood work. Patient seen and examined. Comprehensive discussion was done on the following. 1. Nutrition: It is important to follow a healthy diet based on lots of vegetables and legumes and good fat. Avoid processed food and processed carbohydrates. Prepare your own meals. Read labels and avoid high fructose corn syrup, processed chemicals added to increase shelf life and preprepared meals. Avoid fast foods. Eat slowly and plan meals for a week. Try to count calories and be mindful of daily calorie intake. Get into the habit of keeping an eye on your weight by using an appropriate scale. Learn to log exercise and discussed fitness Apps like [employer] which can help keep log off calories taken versus calories burned. Local food should be preferred. Discussed Dirty Dozen Versus Clean Fifteen. Discussed healthy supplements like fish oil, Tumeric, Curcumin, Melatonin, Resveratrol, Probiotics, Vitamin-D, Alpha-Lipoic acid, Vitamin-D and coconut oil. 2. It is important to exercise regularly. Is a good habit to walk at least 30 minutes a day. Gentle weightlifting with standard precautions to protect the back. Finding activity like cycling or hiking and get into the habit of engaging in it. Stretching before and after the exercises important. It is also important to contact me if there are any problems like shortness of breath, chest pain, back pain and joint or muscle pain associated with the exercise. 3. Discussed age appropriate screening guidelines. Colonoscopy needs to start at age 50 with stool for occult blood as appropriate. There is a new test that can test for genetic abnormalities in the stool sample, Cologuard. This would not replace a colonoscopy but could be used as a screening tool for patients who do not want a colonoscopy. We discussed the importance of early detection of colon cancer. 4. Discussed current PSA screening. PSA screening can be done in most patients between age 50 and 65. However early detection of prostate cancer needs to carefully be balanced with complications with treatment. These include incontinence, impotence etc. Each patient should decide if they would like to have this test. 5. Discussed safe driving and no use of smart phone while driving 6. Age-appropriate immunizations were discussed. A tetanus booster is needed every 10 years. Flu vaccine is recommended every year just before the start of the flu season. Shingles vaccine is recommended after age 50 but not all insurances cover it. Pneumonia vaccine is given after age 65 unless there are certain comorbidities for which it is started earlier. 7. Diagnostic labs were discussed. These could include/not limited to CBC CMP and lipids with fasting blood glucose and insulin levels. Vitamin D and hemoglobin A1c testing might be appropriate. All quetsions answered to patients satisfaction. Patient verbalized understanding of diagnosis and treatments explained. To call sooner prior to next visit it any questions/concerns arise. Case discussed with collaborating physician Traci Walden who reviewed the assessment and plan. Chart, medications, labs, vital signs reviewed. Dictation was accomplished with the use of [employer] voice recognition software, prone to medical misidentifications and grammatical errors. This is unintentional and the practitioner does try to identify and correct these, but some could still be present. Please do not hesitate to contact practitioner for clarification. 05/07/2024 History of alcoholis m (ICD-10 - F10.21) Pleasant 74-year-old female presents via telehealth to review bone density scan. # Osteoporosis of the spine, osteopenia of the left femur, and left hip. Start vitamin D and calcium, as well as alendronate once weekly. Discussed proper use, side effects, as well as risk factors to discontinue medication including but not limited to jaw pain. Will bone density 03/2024, will be due again 03/2026. # Asthma: Albuterol as needed # Hypertension: Continue lisinopril hydrochlorothiazide 05/09.5, # Depression: Continue bupropion 300 mg extended release # GERD: Continue pantoprazole 40 mg # Incontinence: Continue oxybutynin 5 mg and mirabegron for overactive bladder symptoms. Patient follow-up in July for complete physical, sooner as needed Patient is seen today via telehealth agreement, with consent of patient. I used the following telehealth technology (telephone/[facility]/ skype) during this visit This encounter is appropriate and reasonable under the circumstances given the patient's particular presentation. The patient has been advised of the potential risks and limitations of this mode of treatment Including but not limited to the absence of in person physical examination,and has agreed to be treated in a remote fashion in spite of this. Any and all patient questions have been answered. The patient also has been advised to contact this office for worsening conditions or problems and seek medical treatment and/or call 911 if the patient deems either necessary All quetsions answered to patients satisfaction. Patient verbalized understanding of diagnosis and treatments explained. To call sooner prior to next visit it any questions/concerns arise. Case discussed with collaborating physician Traci Walden who reviewed the assessment and plan. Chart, medications, labs, vital signs reviewed. Dictation was accomplished with the use of [employer] voice recognition software, prone to medical misidentifications and grammatical errors. This is unintentional and the practitioner does try to identify and correct these, but some could still be present. Please do not hesitate to contact practitioner for clarification. 09/01/2024 Encounter for screening for diabetes mellitus (ICD-10 - Z13.1) 10/07/2024 Depression, unspecified depression type (ICD-10 - F32.9) # Up-to-date on all vaccines, and routine screening. Will obtain colonoscopy record that she had in 2021 after positive Cologuard. Due for bone density in 2025. Healthcare proxy completed 09/01/2024. # Alcoholism: Patient has been sober since February 2023. She is very pleased with progress and attends AA meetings once daily. 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 # Osteoporosis of the spine, osteopenia of the left femur, and left hip. Continue vitamin D and calcium, as well as alendronate once weekly. Patient been tolerating medication well Discussed proper use, side effects, as well as risk factors to discontinue medication including but not limited to jaw pain. Will bone density 03/2024, will be due again 03/2026. # Asthma: Albuterol as needed # Hyperlipidemia: Cholesterol 06/04/2020 4-63, LDL 168. Recommended cholesterol medications, patient not interested. Repeat blood work 09/2024 showing total cholesterol 201. Patient is very pleased. Repeat in 4 months. Discussed coronary calcium scan.History on simvastatin for which she tolerated well but discontinued because of weight loss. She would like to repeat values for labs, and then potentially initiate medication as needed.Declines coronary calcium scan at this time. # Hypertension: Continue lisinopril hydrochlorothiazide 05/09.5, Blood pressure stable # Depression: Continue bupropion 300 mg extended release, States is uncontrolled. Trialed Vraylar but it was too expensive for her insurance did not cover it. History on Celexa with minimal improvement. Trialed sertraline 25 mg, discontinued after she experienced tremors. She is feeling better and not interested in any alternative but will trial HPA adapt. Discussed proper use, side effects.Declines therapy/psychiatry at this time. Does follow with AA daily. # GERD: Continue pantoprazole 40 mg # Incontinence: Continue oxybutynin 5 mg and mirabegron for overactive bladder symptoms. # Chronic kidney disease: Creatinine 1.12, GFR low at 52, Repeat blood work showing improved kidney function creatinine 1.0, GFR 55. Will repeat in 3 to 4 months. # Back spasm: No red flag symptoms. Trial low-dose muscle relaxer, massage, heat, lidocaine patches as needed. If no improvement consider imaging/PT. Patient understanding Follow-up in 3 to 4 months for repeat blood work, sooner as needed All quetsions answered to patients satisfaction. Patient verbalized understanding of diagnosis and treatments explained. To call sooner prior to next visit it any questions/concerns arise. Case discussed with collaborating physician Traci Walden who reviewed the assessment and plan. Chart, medications, labs, vital signs reviewed. Dictation was accomplished with the use of [employer] voice recognition software, prone to medical misidentifications and grammatical errors. This is unintentional and the practitioner does try to identify and correct these, but some could still be present. Please do not hesitate to contact practitioner for clarification. 09/01/2024 History of alcoholis m (ICD-10 - F10.21) Patient is a pleasant 74-year-old female who presents the office for a complete physical exam. # Up-to-date on all vaccines, and routine screening. Will obtain colonoscopy record that she had in 2021 after positive Cologuard. Due for bone density in 2025. PHQ-9 completed in office today. Healthcare proxy completed 09/01/2024. # Alcoholism: Patient has been sober since February 2023. She is very pleased with progress and attends AA meetings once daily. 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 # Osteoporosis of the spine, osteopenia of the left femur, and left hip. Continue vitamin D and calcium, as well as alendronate once weekly. Patient been tolerating medication well Discussed proper use, side effects, as well as risk factors to discontinue medication including but not limited to jaw pain. Will bone density 03/2024, will be due again 03/2026. # Asthma: Albuterol as needed # Hyperlipidemia: Cholesterol 06/04/2020 4-63, LDL 168. Recommended cholesterol medications, patient not interested. Will repeat blood work. Discussed coronary calcium scan.History on simvastatin for which she tolerated well but discontinued because of weight loss. She would like to repeat values for labs, and then potentially initiate medication as needed.Clines coronary calcium scan at this time. # Hypertension: Continue lisinopril hydrochlorothiazide 05/09.5, Blood pressure stable # Depression: Continue bupropion 300 mg extended release, States is uncontrolled. Trialed Vraylar but it was too expensive for her insurance did not cover it. History on Celexa with minimal improvement. Will trial sertraline 25 mg, follow-up in 4 to 6 weeks. Discussed proper use, side effects.Declines therapy/psychiatry at this time. Does follow with AA daily. # GERD: Continue pantoprazole 40 mg # Incontinence: Continue oxybutynin 5 mg and mirabegron for overactive bladder symptoms. # Chronic kidney disease: Creatinine 1.12, GFR low at 52, will repeat blood work, consider Medications like Farxiga Follow-up in 6 weeks to assess efficacy/compliance of sertraline/blood work. Patient seen and examined. Comprehensive discussion was done on the following. 1. Nutrition: It is important to follow a healthy diet based on lots of vegetables and legumes and good fat. Avoid processed food and processed carbohydrates. Prepare your own meals. Read labels and avoid high fructose corn syrup, processed chemicals added to increase shelf life and preprepared meals. Avoid fast foods. Eat slowly and plan meals for a week. Try to count calories and be mindful of daily calorie intake. Get into the habit of keeping an eye on your weight by using an appropriate scale. Learn to log exercise and discussed fitness Apps like [employer] which can help keep log off calories taken versus calories burned. Local food should be preferred. Discussed Dirty Dozen Versus Clean Fifteen. Discussed healthy supplements like fish oil, Tumeric, Curcumin, Melatonin, Resveratrol, Probiotics, Vitamin-D, Alpha-Lipoic acid, Vitamin-D and coconut oil. 2. It is important to exercise regularly. Is a good habit to walk at least 30 minutes a day. Gentle weightlifting with standard precautions to protect the back. Finding activity like cycling or hiking and get into the habit of engaging in it. Stretching before and after the exercises important. It is also important to contact me if there are any problems like shortness of breath, chest pain, back pain and joint or muscle pain associated with the exercise. 3. Discussed age appropriate screening guidelines. Colonoscopy needs to start at age 50 with stool for occult blood as appropriate. There is a new test that can test for genetic abnormalities in the stool sample, Cologuard. This would not replace a colonoscopy but could be used as a screening tool for patients who do not want a colonoscopy. We discussed the importance of early detection of colon cancer. 4. Discussed current PSA screening. PSA screening can be done in most patients between age 50 and 65. However early detection of prostate cancer needs to carefully be balanced with complications with treatment. These include incontinence, impotence etc. Each patient should decide if they would like to have this test. 5. Discussed safe driving and no use of smart phone while driving 6. Age-appropriate immunizations were discussed. A tetanus booster is needed every 10 years. Flu vaccine is recommended every year just before the start of the flu season. Shingles vaccine is recommended after age 50 but not all insurances cover it. Pneumonia vaccine is given after age 65 unless there are certain comorbidities for which it is started earlier. 7. Diagnostic labs were discussed. These could include/not limited to CBC CMP and lipids with fasting blood glucose and insulin levels. Vitamin D and hemoglobin A1c testing might be appropriate. All quetsions answered to patients satisfaction. Patient verbalized understanding of diagnosis and treatments explained. To call sooner prior to next visit it any questions/concerns arise. Case discussed with collaborating physician Traci Walden who reviewed the assessment and plan. Chart, medications, labs, vital signs reviewed. Dictation was accomplished with the use of [employer] voice recognition software, prone to medical misidentifications and grammatical errors. This is unintentional and the practitioner does try to identify and correct these, but some could still be present. Please do not hesitate to contact practitioner for clarification. 04/28/2024 Hyperlipidemia (ICD- 10 - E78.5) Ora is a pleasant 74 year old female patient seen in office today following up for urinary frequency after receiving work up. #Incontinence in female - reports improvement on mirabegron. She will trial taking hydrochlorothiazide every other day to see if that allows her to sleep through the night. #Stage 3a Chronic Kidney Disease - CBC, CMP, UA, and lipid panel will be ordered. She understands that we need to verify that her kidneys are working properly. She will be called with any abnormal findings and follow up 05/05/24. #History of alcohol abuse - She is doing very well, and has been sober for over 1 year without relapse. She is very involved with AA, prays daily, and feels confident in and proud of her sobriety. #Osteoporosis - She received a DEXA scan and has ordered the results for the office. Should receive in next two weeks #Major Depressive Disorder - She will continue without the Vraylar, as her symptoms have improved with improved sleep quality. #Hypertension - She is well managed and will continue taking Lisinopril daily. HCTZ will be taken once every other day to reduce urinary frequency She will receive the MICC B12 shot today and the flu shot, both in office. She will f/u 04/824 to review lab work. 10/07/2024 History of alcoholis m (ICD-10 - F10.21) # Up-to-date on all vaccines, and routine screening. Will obtain colonoscopy record that she had in 2021 after positive Cologuard. Due for bone density in 2025. Healthcare proxy completed 09/01/2024. # Alcoholism: Patient has been sober since February 2023. She is very pleased with progress and attends AA meetings once daily. 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 # Osteoporosis of the spine, osteopenia of the left femur, and left hip. Continue vitamin D and calcium, as well as alendronate once weekly. Patient been tolerating medication well Discussed proper use, side effects, as well as risk factors to discontinue medication including but not limited to jaw pain. Will bone density 03/2024, will be due again 03/2026. # Asthma: Albuterol as needed # Hyperlipidemia: Cholesterol 06/04/2020 4-63, LDL 168. Recommended cholesterol medications, patient not interested. Repeat blood work 09/2024 showing total cholesterol 201. Patient is very pleased. Repeat in 4 months. Discussed coronary calcium scan.History on simvastatin for which she tolerated well but discontinued because of weight loss. She would like to repeat values for labs, and then potentially initiate medication as needed.Declines coronary calcium scan at this time. # Hypertension: Continue lisinopril hydrochlorothiazide 05/09.5, Blood pressure stable # Depression: Continue bupropion 300 mg extended release, States is uncontrolled. Trialed Vraylar but it was too expensive for her insurance did not cover it. History on Celexa with minimal improvement. Trialed sertraline 25 mg, discontinued after she experienced tremors. She is feeling better and not interested in any alternative but will trial HPA adapt. Discussed proper use, side effects.Declines therapy/psychiatry at this time. Does follow with AA daily. # GERD: Continue pantoprazole 40 mg # Incontinence: Continue oxybutynin 5 mg and mirabegron for overactive bladder symptoms. # Chronic kidney disease: Creatinine 1.12, GFR low at 52, Repeat blood work showing improved kidney function creatinine 1.0, GFR 55. Will repeat in 3 to 4 months. # Back spasm: No red flag symptoms. Trial low-dose muscle relaxer, massage, heat, lidocaine patches as needed. If no improvement consider imaging/PT. Patient understanding Follow-up in 3 to 4 months for repeat blood work, sooner as needed All quetsions answered to patients satisfaction. Patient verbalized understanding of diagnosis and treatments explained. To call sooner prior to next visit it any questions/concerns arise. Case discussed with collaborating physician Traci Walden who reviewed the assessment and plan. Chart, medications, labs, vital signs reviewed. Dictation was accomplished with the use of [employer] voice recognition software, prone to medical misidentifications and grammatical errors. This is unintentional and the practitioner does try to identify and correct these, but some could still be present. Please do not hesitate to contact practitioner for clarification. 04/28/2024 Incontinence in [place] (ICD-10 - R32) Ora is a pleasant 74 year old female patient seen in office today following up for urinary frequency after receiving work up. #Incontinence in female - reports improvement on mirabegron. She will trial taking hydrochlorothiazide every other day to see if that allows her to sleep through the night. #Stage 3a Chronic Kidney Disease - CBC, CMP, UA, and lipid panel will be ordered. She understands that we need to verify that her kidneys are working properly. She will be called with any abnormal findings and follow up 05/05/24. #History of alcohol abuse - She is doing very well, and has been sober for over 1 year without relapse. She is very involved with AA, prays daily, and feels confident in and proud of her sobriety. #Osteoporosis - She received a DEXA scan and has ordered the results for the office. Should receive in next two weeks #Major Depressive Disorder - She will continue without the Vraylar, as her symptoms have improved with improved sleep quality. #Hypertension - She is well managed and will continue taking Lisinopril daily. HCTZ will be taken once every other day to reduce urinary frequency She will receive the MICC B12 shot today and the flu shot, both in office. She will f/u 04/824 to review lab work. 10/07/2024 Adult general medica l exam (ICD-10 - Z00.00) # Up-to-date on all vaccines, and routine screening. Will obtain colonoscopy record that she had in 2021 after positive Cologuard. Due for bone density in 2025. Healthcare proxy completed 09/01/2024. # Alcoholism: Patient has been sober since February 2023. She is very pleased with progress and attends AA meetings once daily. 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 # Osteoporosis of the spine, osteopenia of the left femur, and left hip. Continue vitamin D and calcium, as well as alendronate once weekly. Patient been tolerating medication well Discussed proper use, side effects, as well as risk factors to discontinue medication including but not limited to jaw pain. Will bone density 03/2024, will be due again 03/2026. # Asthma: Albuterol as needed # Hyperlipidemia: Cholesterol 06/04/2020 4-63, LDL 168. Recommended cholesterol medications, patient not interested. Repeat blood work 09/2024 showing total cholesterol 201. Patient is very pleased. Repeat in 4 months. Discussed coronary calcium scan.History on simvastatin for which she tolerated well but discontinued because of weight loss. She would like to repeat values for labs, and then potentially initiate medication as needed.Declines coronary calcium scan at this time. # Hypertension: Continue lisinopril hydrochlorothiazide 05/09.5, Blood pressure stable # Depression: Continue bupropion 300 mg extended release, States is uncontrolled. Trialed Vraylar but it was too expensive for her insurance did not cover it. History on Celexa with minimal improvement. Trialed sertraline 25 mg, discontinued after she experienced tremors. She is feeling better and not interested in any alternative but will trial HPA adapt. Discussed proper use, side effects.Declines therapy/psychiatry at this time. Does follow with AA daily. # GERD: Continue pantoprazole 40 mg # Incontinence: Continue oxybutynin 5 mg and mirabegron for overactive bladder symptoms. # Chronic kidney disease: Creatinine 1.12, GFR low at 52, Repeat blood work showing improved kidney function creatinine 1.0, GFR 55. Will repeat in 3 to 4 months. # Back spasm: No red flag symptoms. Trial low-dose muscle relaxer, massage, heat, lidocaine patches as needed. If no improvement consider imaging/PT. Patient understanding Follow-up in 3 to 4 months for repeat blood work, sooner as needed All quetsions answered to patients satisfaction. Patient verbalized understanding of diagnosis and treatments explained. To call sooner prior to next visit it any questions/concerns arise. Case discussed with collaborating physician Traci Walden who reviewed the assessment and plan. Chart, medications, labs, vital signs reviewed. Dictation was accomplished with the use of [employer] voice recognition software, prone to medical misidentifications and grammatical errors. This is unintentional and the practitioner does try to identify and correct these, but some could still be present. Please do not hesitate to contact practitioner for clarification. 04/28/2024 Major depressive disorder, recurrent, moderate (ICD-10 - F33.1) Ora is a pleasant 74 year old female patient seen in office today following up for urinary frequency after receiving work up. #Incontinence in female - reports improvement on mirabegron. She will trial taking hydrochlorothiazide every other day to see if that allows her to sleep through the night. #Stage 3a Chronic Kidney Disease - CBC, CMP, UA, and lipid panel will be ordered. She understands that we need to verify that her kidneys are working properly. She will be called with any abnormal findings and follow up 05/05/24. #History of alcohol abuse - She is doing very well, and has been sober for over 1 year without relapse. She is very involved with AA, prays daily, and feels confident in and proud of her sobriety. #Osteoporosis - She received a DEXA scan and has ordered the results for the office. Should receive in next two weeks #Major Depressive Disorder - She will continue without the Vraylar, as her symptoms have improved with improved sleep quality. #Hypertension - She is well managed and will continue taking Lisinopril daily. HCTZ will be taken once every other day to reduce urinary frequency She will receive the MICC B12 shot today and the flu shot, both in office. She will f/u 04/824 to review lab work. 10/07/2024 Chronic kidney disease, stage 3a (ICD-10 - N18.31) # Up-to-date on all vaccines, and routine screening. Will obtain colonoscopy record that she had in 2021 after positive Cologuard. Due for bone density in 2025. Healthcare proxy completed 09/01/2024. # Alcoholism: Patient has been sober since February 2023. She is very pleased with progress and attends AA meetings once daily. 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 # Osteoporosis of the spine, osteopenia of the left femur, and left hip. Continue vitamin D and calcium, as well as alendronate once weekly. Patient been tolerating medication well Discussed proper use, side effects, as well as risk factors to discontinue medication including but not limited to jaw pain. Will bone density 03/2024, will be due again 03/2026. # Asthma: Albuterol as needed # Hyperlipidemia: Cholesterol 06/04/2020 4-63, LDL 168. Recommended cholesterol medications, patient not interested. Repeat blood work 09/2024 showing total cholesterol 201. Patient is very pleased. Repeat in 4 months. Discussed coronary calcium scan.History on simvastatin for which she tolerated well but discontinued because of weight loss. She would like to repeat values for labs, and then potentially initiate medication as needed.Declines coronary calcium scan at this time. # Hypertension: Continue lisinopril hydrochlorothiazide 05/09.5, Blood pressure stable # Depression: Continue bupropion 300 mg extended release, States is uncontrolled. Trialed Vraylar but it was too expensive for her insurance did not cover it. History on Celexa with minimal improvement. Trialed sertraline 25 mg, discontinued after she experienced tremors. She is feeling better and not interested in any alternative but will trial HPA adapt. Discussed proper use, side effects.Declines therapy/psychiatry at this time. Does follow with AA daily. # GERD: Continue pantoprazole 40 mg # Incontinence: Continue oxybutynin 5 mg and mirabegron for overactive bladder symptoms. # Chronic kidney disease: Creatinine 1.12, GFR low at 52, Repeat blood work showing improved kidney function creatinine 1.0, GFR 55. Will repeat in 3 to 4 months. # Back spasm: No red flag symptoms. Trial low-dose muscle relaxer, massage, heat, lidocaine patches as needed. If no improvement consider imaging/PT. Patient understanding Follow-up in 3 to 4 months for repeat blood work, sooner as needed All quetsions answered to patients satisfaction. Patient verbalized understanding of diagnosis and treatments explained. To call sooner prior to next visit it any questions/concerns arise. Case discussed with collaborating physician Traci Walden who reviewed the assessment and plan. Chart, medications, labs, vital signs reviewed. Dictation was accomplished with the use of [employer] voice recognition software, prone to medical misidentifications and grammatical errors. This is unintentional and the practitioner does try to identify and correct these, but some could still be present. Please do not hesitate to contact practitioner for clarification. 04/28/2024 Postprocedural hypertension (ICD-10 - I97.3) Ora is a pleasant 74 year old female patient seen in office today following up for urinary frequency after receiving work up. #Incontinence in female - reports improvement on mirabegron. She will trial taking hydrochlorothiazide every other day to see if that allows her to sleep through the night. #Stage 3a Chronic Kidney Disease - CBC, CMP, UA, and lipid panel will be ordered. She understands that we need to verify that her kidneys are working properly. She will be called with any abnormal findings and follow up 05/05/24. #History of alcohol abuse - She is doing very well, and has been sober for over 1 year without relapse. She is very involved with AA, prays daily, and feels confident in and proud of her sobriety. #Osteoporosis - She received a DEXA scan and has ordered the results for the office. Should receive in next two weeks #Major Depressive Disorder - She will continue without the Vraylar, as her symptoms have improved with improved sleep quality. #Hypertension - She is well managed and will continue taking Lisinopril daily. HCTZ will be taken once every other day to reduce urinary frequency She will receive the MICC B12 shot today and the flu shot, both in office. She will f/u 04/824 to review lab work. 10/07/2024 Acquired hyperlipoproteinemia (ICD-10 - E78.5) # Up-to-date on all vaccines, and routine screening. Will obtain colonoscopy record that she had in 2021 after positive Cologuard. Due for bone density in 2025. Healthcare proxy completed 09/01/2024. # Alcoholism: Patient has been sober since February 2023. She is very pleased with progress and attends AA meetings once daily. 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 # Osteoporosis of the spine, osteopenia of the left femur, and left hip. Continue vitamin D and calcium, as well as alendronate once weekly. Patient been tolerating medication well Discussed proper use, side effects, as well as risk factors to discontinue medication including but not limited to jaw pain. Will bone density 03/2024, will be due again 03/2026. # Asthma: Albuterol as needed # Hyperlipidemia: Cholesterol 06/04/2020 4-63, LDL 168. Recommended cholesterol medications, patient not interested. Repeat blood work 09/2024 showing total cholesterol 201. Patient is very pleased. Repeat in 4 months. Discussed coronary calcium scan.History on simvastatin for which she tolerated well but discontinued because of weight loss. She would like to repeat values for labs, and then potentially initiate medication as needed.Declines coronary calcium scan at this time. # Hypertension: Continue lisinopril hydrochlorothiazide 10.5, Blood pressure stable # Depression: Continue bupropion 300 mg extended release, States is uncontrolled. Trialed Vraylar but it was too expensive for her insurance did not cover it. History on Celexa with minimal improvement. Trialed sertraline 25 mg, discontinued after she experienced tremors. She is feeling better and not interested in any alternative but will trial HPA adapt. Discussed proper use, side effects.Declines therapy/psychiatry at this time. Does follow with AA daily. # GERD: Continue pantoprazole 40 mg # Incontinence: Continue oxybutynin 5 mg and mirabegron for overactive bladder symptoms. # Chronic kidney disease: Creatinine 1.12, GFR low at 52, Repeat blood work showing improved kidney function creatinine 1.0, GFR 55. Will repeat in 3 to 4 months. # Back spasm: No red flag symptoms. Trial low-dose muscle relaxer, massage, heat, lidocaine patches as needed. If no improvement consider imaging/PT. Patient understanding Follow-up in 3 to 4 months for repeat blood work, sooner as needed All quetsions answered to patients satisfaction. Patient verbalized understanding of diagnosis and treatments explained. To call sooner prior to next visit it any questions/concerns arise. Case discussed with collaborating physician Traci Walden who reviewed the assessment and plan. Chart, medications, labs, vital signs reviewed. Dictation was accomplished with the use of [employer] voice recognition software, prone to medical misidentifications and grammatical errors. This is unintentional and the practitioner does try to identify and correct these, but some could still be present. Please do not hesitate to contact practitioner for clarification. 10/07/2024 Diabetes mellitus screening (ICD-10 - Z13.1) # Up-to-date on all vaccines, and routine screening. Will obtain colonoscopy record that she had in 2021 after positive Cologuard. Due for bone density in 2025. Healthcare proxy completed 09/01/2024. # Alcoholism: Patient has been sober since February 2023. She is very pleased with progress and attends AA meetings once daily. 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 # Osteoporosis of the spine, osteopenia of the left femur, and left hip. Continue vitamin D and calcium, as well as alendronate once weekly. Patient been tolerating medication well Discussed proper use, side effects, as well as risk factors to discontinue medication including but not limited to jaw pain. Will bone density 03/2024, will be due again 03/2026. # Asthma: Albuterol as needed # Hyperlipidemia: Cholesterol 06/04/2020 4-63, LDL 168. Recommended cholesterol medications, patient not interested. Repeat blood work 09/2024 showing total cholesterol 201. Patient is very pleased. Repeat in 4 months. Discussed coronary calcium scan.History on simvastatin for which she tolerated well but discontinued because of weight loss. She would like to repeat values for labs, and then potentially initiate medication as needed.Declines coronary calcium scan at this time. # Hypertension: Continue lisinopril hydrochlorothiazide 10.5, Blood pressure stable # Depression: Continue bupropion 300 mg extended release, States is uncontrolled. Trialed Vraylar but it was too expensive for her insurance did not cover it. History on Celexa with minimal improvement. Trialed sertraline 25 mg, discontinued after she experienced tremors. She is feeling better and not interested in any alternative but will trial HPA adapt. Discussed proper use, side effects.Declines therapy/psychiatry at this time. Does follow with AA daily. # GERD: Continue pantoprazole 40 mg # Incontinence: Continue oxybutynin 5 mg and mirabegron for overactive bladder symptoms. # Chronic kidney disease: Creatinine 1.12, GFR low at 52, Repeat blood work showing improved kidney function creatinine 1.0, GFR 55. Will repeat in 3 to 4 months. # Back spasm: No red flag symptoms. Trial low-dose muscle relaxer, massage, heat, lidocaine patches as needed. If no improvement consider imaging/PT. Patient understanding Follow-up in 3 to 4 months for repeat blood work, sooner as needed All quetsions answered to patients satisfaction. Patient verbalized understanding of diagnosis and treatments explained. To call sooner prior to next visit it any questions/concerns arise. Case discussed with collaborating physician Traci Walden who reviewed the assessment and plan. Chart, medications, labs, vital signs reviewed. Dictation was accomplished with the use of [employer] voice recognition software, prone to medical misidentifications and grammatical errors. This is unintentional and the practitioner does try to identify and correct these, but some could still be present. Please do not hesitate to contact practitioner for clarification. 04/28/2024 Hypertension, essential (ICD-10 - I10) Ora is a pleasant 74 year old female patient seen in office today following up for urinary frequency after receiving work up. #Incontinence in female - reports improvement on mirabegron. She will trial taking hydrochlorothiazide every other day to see if that allows her to sleep through the night. #Stage 3a Chronic Kidney Disease - CBC, CMP, UA, and lipid panel will be ordered. She understands that we need to verify that her kidneys are working properly. She will be called with any abnormal findings and follow up 05/05/24. #History of alcohol abuse - She is doing very well, and has been sober for over 1 year without relapse. She is very involved with AA, prays daily, and feels confident in and proud of her sobriety. #Osteoporosis - She received a DEXA scan and has ordered the results for the office. Should receive in next two weeks #Major Depressive Disorder - She will continue without the Vraylar, as her symptoms have improved with improved sleep quality. #Hypertension - She is well managed and will continue taking Lisinopril daily. HCTZ will be taken once every other day to reduce urinary frequency She will receive the MICC B12 shot today and the flu shot, both in office. She will f/u 04/824 to review lab work. 04/28/2024 Stage 3a chronic kidney disease (ICD-10 - N18.31) Ora is a pleasant 74 year old female patient seen in office today following up for urinary frequency after receiving work up. #Incontinence in female - reports improvement on mirabegron. She will trial taking hydrochlorothiazide every other day to see if that allows her to sleep through the night. #Stage 3a Chronic Kidney Disease - CBC, CMP, UA, and lipid panel will be ordered. She understands that we need to verify that her kidneys are working properly. She will be called with any abnormal findings and follow up 05/05/24. #History of alcohol abuse - She is doing very well, and has been sober for over 1 year without relapse. She is very involved with AA, prays daily, and feels confident in and proud of her sobriety. #Osteoporosis - She received a DEXA scan and has ordered the results for the office. Should receive in next two weeks #Major Depressive Disorder - She will continue without the Vraylar, as her symptoms have improved with improved sleep quality. #Hypertension - She is well managed and will continue taking Lisinopril daily. HCTZ will be taken once every other day to reduce urinary frequency She will receive the MICC B12 shot today and the flu shot, both in office. She will f/u 04/824 to review lab work. 10/07/2024 Abnormal metabolic state due to diabetes mellitus (ICD-10 - E11.9) # Up-to-date on all vaccines, and routine screening. Will obtain colonoscopy record that she had in 2021 after positive Cologuard. Due for bone density in 2025. Healthcare proxy completed 09/01/2024. # Alcoholism: Patient has been sober since February 2023. She is very pleased with progress and attends AA meetings once daily. 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 # Osteoporosis of the spine, osteopenia of the left femur, and left hip. Continue vitamin D and calcium, as well as alendronate once weekly. Patient been tolerating medication well Discussed proper use, side effects, as well as risk factors to discontinue medication including but not limited to jaw pain. Will bone density 03/2024, will be due again 03/2026. # Asthma: Albuterol as needed # Hyperlipidemia: Cholesterol 06/04/2020 4-63, LDL 168. Recommended cholesterol medications, patient not interested. Repeat blood work 09/2024 showing total cholesterol 201. Patient is very pleased. Repeat in 4 months. Discussed coronary calcium scan.History on simvastatin for which she tolerated well but discontinued because of weight loss. She would like to repeat values for labs, and then potentially initiate medication as needed.Declines coronary calcium scan at this time. # Hypertension: Continue lisinopril hydrochlorothiazide 05/09.5, Blood pressure stable # Depression: Continue bupropion 300 mg extended release, States is uncontrolled. Trialed Vraylar but it was too expensive for her insurance did not cover it. History on Celexa with minimal improvement. Trialed sertraline 25 mg, discontinued after she experienced tremors. She is feeling better and not interested in any alternative but will trial HPA adapt. Discussed proper use, side effects.Declines therapy/psychiatry at this time. Does follow with AA daily. # GERD: Continue pantoprazole 40 mg # Incontinence: Continue oxybutynin 5 mg and mirabegron for overactive bladder symptoms. # Chronic kidney disease: Creatinine 1.12, GFR low at 52, Repeat blood work showing improved kidney function creatinine 1.0, GFR 55. Will repeat in 3 to 4 months. # Back spasm: No red flag symptoms. Trial low-dose muscle relaxer, massage, heat, lidocaine patches as needed. If no improvement consider imaging/PT. Patient understanding Follow-up in 3 to 4 months for repeat blood work, sooner as needed All quetsions answered to patients satisfaction. Patient verbalized understanding of diagnosis and treatments explained. To call sooner prior to next visit it any questions/concerns arise. Case discussed with collaborating physician Traci Walden who reviewed the assessment and plan. Chart, medications, labs, vital signs reviewed. Dictation was accomplished with the use of [employer] voice recognition software, prone to medical misidentifications and grammatical errors. This is unintentional and the practitioner does try to identify and correct these, but some could still be present. Please do not hesitate to contact practitioner for clarification. 10/07/2024 Prediabetes (ICD-10 - R73.03) # Up-to-date on all vaccines, and routine screening. Will obtain colonoscopy record that she had in 2021 after positive Cologuard. Due for bone density in 2025. Healthcare proxy completed 09/01/2024. # Alcoholism: Patient has been sober since February 2023. She is very pleased with progress and attends AA meetings once daily. 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 # Osteoporosis of the spine, osteopenia of the left femur, and left hip. Continue vitamin D and calcium, as well as alendronate once weekly. Patient been tolerating medication well Discussed proper use, side effects, as well as risk factors to discontinue medication including but not limited to jaw pain. Will bone density 03/2024, will be due again 03/2026. # Asthma: Albuterol as needed # Hyperlipidemia: Cholesterol 06/04/2020 4-63, LDL 168. Recommended cholesterol medications, patient not interested. Repeat blood work 09/2024 showing total cholesterol 201. Patient is very pleased. Repeat in 4 months. Discussed coronary calcium scan.History on simvastatin for which she tolerated well but discontinued because of weight loss. She would like to repeat values for labs, and then potentially initiate medication as needed.Declines coronary calcium scan at this time. # Hypertension: Continue lisinopril hydrochlorothiazide 10.5, Blood pressure stable # Depression: Continue bupropion 300 mg extended release, States is uncontrolled. Trialed Vraylar but it was too expensive for her insurance did not cover it. History on Celexa with minimal improvement. Trialed sertraline 25 mg, discontinued after she experienced tremors. She is feeling better and not interested in any alternative but will trial HPA adapt. Discussed proper use, side effects.Declines therapy/psychiatry at this time. Does follow with AA daily. # GERD: Continue pantoprazole 40 mg # Incontinence: Continue oxybutynin 5 mg and mirabegron for overactive bladder symptoms. # Chronic kidney disease: Creatinine 1.12, GFR low at 52, Repeat blood work showing improved kidney function creatinine 1.0, GFR 55. Will repeat in 3 to 4 months. # Back spasm: No red flag symptoms. Trial low-dose muscle relaxer, massage, heat, lidocaine patches as needed. If no improvement consider imaging/PT. Patient understanding Follow-up in 3 to 4 months for repeat blood work, sooner as needed All quetsions answered to patients satisfaction. Patient verbalized understanding of diagnosis and treatments explained. To call sooner prior to next visit it any questions/concerns arise. Case discussed with collaborating physician Traci Walden who reviewed the assessment and plan. Chart, medications, labs, vital signs reviewed. Dictation was accomplished with the use of [employer] voice recognition software, prone to medical misidentifications and grammatical errors. This is unintentional and the practitioner does try to identify and correct these, but some could still be present. Please do not hesitate to contact practitioner for clarification. 04/28/2024 Alcoholism (ICD-10 - F10.20) Ora is a pleasant 74 year old female patient seen in office today following up for urinary frequency after receiving work up. #Incontinence in female - reports improvement on mirabegron. She will trial taking hydrochlorothiazide every other day to see if that allows her to sleep through the night. #Stage 3a Chronic Kidney Disease - CBC, CMP, UA, and lipid panel will be ordered. She understands that we need to verify that her kidneys are working properly. She will be called with any abnormal findings and follow up 05/05/24. #History of alcohol abuse - She is doing very well, and has been sober for over 1 year without relapse. She is very involved with AA, prays daily, and feels confident in and proud of her sobriety. #Osteoporosis - She received a DEXA scan and has ordered the results for the office. Should receive in next two weeks #Major Depressive Disorder - She will continue without the Vraylar, as her symptoms have improved with improved sleep quality. #Hypertension - She is well managed and will continue taking Lisinopril daily. HCTZ will be taken once every other day to reduce urinary frequency She will receive the MICC B12 shot today and the flu shot, both in office. She will f/u 04/824 to review lab work. Plan Of Treatment Pending Test Test Name Order Date MRI : Hip, right 04/23/2022 X ray : Hip, right 08/17/2020 X ray : Hip, right 02/16/2022 Mammogram 08/05/2023 Mammogram 06/30/2021 Bone Density 06/30/2021 Bone Density 08/05/2023 Bone Density 04/10/2023 Bone Density 02/28/2024 25 HYDROXY VITAMIN D2 D3 04/28/2019 CBC (COMPLETE BLOOD COUNT) 04/28/2019 COMPREHENSIVE METABOLIC PANEL 04/28/2019 HEMOGLOBIN A1C 04/28/2019 LIPID PANEL 04/28/2019 TSH WITH REFLEX TO FT4 04/28/2019 URINALYSIS, COMPLETE 04/28/2019 VITAMIN B12 04/28/2019 Alcohol (Ethanol) Level 05/30/2021 Alcohol (Ethanol) Level 01/04/2022 Alcohol (Ethanol) Level 05/23/2022 CT Abd and Pelvis w/o Contrast 4 XR Hip 2+ Views RT 07/06/2020 XR L-Spine 4+ Views 07/06/2020 Cologuard 06/30/2021 Cologuard 05/23/2022 LIPID PANEL, STANDARD 05/23/2022 LIPID PANEL, STANDARD 08/05/2023 LIPID PANEL, STANDARD 09/01/2024 LIPID PANEL, STANDARD 10/07/2024 LIPID PANEL, STANDARD 04/28/2024 MICROALBUMIN, RANDOM URINE (W/CREATININE ) 10/07/2024 COMPREHENSIVE METABOLIC PANEL 10/07/2024 COMPREHENSIVE METABOLIC PANEL 04/28/2024 COMPREHENSIVE METABOLIC PANEL 09/01/2024 COMPREHENSIVE METABOLIC PANEL 01/21/2024 COMPREHENSIVE METABOLIC PANEL 05/23/2022 CBC (H/H, RBC, INDICES, WBC, PLT) 2020 CBC (INCLUDES DIFF/PLT) 05/23/2022 CBC (INCLUDES DIFF/PLT) 01/21/2024 CBC (INCLUDES DIFF/PLT) 04/28/2024 CBC (INCLUDES DIFF/PLT) 10/07/2024 URINALYSIS, COMPLETE 10/07/2024 URINALYSIS, COMPLETE 04/28/2024 URINALYSIS, COMPLETE 01/21/2024 SED RATE BY MODIFIED WESTERGREN 01/21/20 24 HEMOGLOBIN A1c 05/23/2022 HEMOGLOBIN A1c 09/01/2024 HEMOGLOBIN A1c 10/07/2024 VITAMIN B12 03/08/2023 VITAMIN D,25-OH,TOTAL,IA 05/23/2022 CULTURE, URINE, ROUTINE 01/21/2024 T[place] DISEASE, ANTIBODY PANEL 01/20 US Renal and Bladder 01/21/2024 Next Appt Details Provider Name:DENISA MCGOWANNER, 04/28/2025 11:30:00 AM, [address], [place], [address], Insurance Providers Payer Name Payer Address Payer Phone Subscriber Number Group Number Insured Name Patient Relationship to Insured Coverage Start Date Coverage End Date YULIANA BASHIR [id number] [place] [address] [id number] Self - patient is the insured 8 Medications Administered Medication Instructions Date of Administration Dosage Notes MICC B12 INJECTION 06/19/2023 lot#[id number] MICC B12 INJECTION 06/27/2023 1.0 mL MICC B12 INJECTION 07/05/2023 1.0 mL MICC B12 INJECTION 07/11/2023 MICC B12 INJECTION 07/25/2023 1 mL MICC B12 INJECTION 08/01/2023 1 mL MICC B12 INJECTION 12/13/2023 1.0 mL MICC B12 INJECTION 12/19/2023 1.0 mL MICC B12 INJECTION 01/02/2024 MICC B12 INJECTION 01/09/2024 1 mL MICC B12 INJECTION 01/16/2024 1 mL MICC B12 INJECTION 01/29/2024 1 mL LOT E1 [id number] MICC B12 INJECTION 02/13/2024 1.0 mL MICC B12 INJECTION 02/20/2024 1 mL MICC B12 INJECTION 03/17/2024 1.0 mL MICC B12 INJECTION 03/31/2024 1 mL MICC B12 INJECTION 04/07/2024 1 mL MICC B12 INJECTION 04/23/2024 1 mL MICC B12 INJECTION 04/28/2024 1.0 mL vitamin b12 01/30/2021 1 mL Medical (General) History Medical History History ICD Code Hyperlipidemia E78.5 Asthma J45.909 Anxiety F41.9 Depression F32.A Seasonal allergies J30.2 GERD (gastroesophageal reflux disease) K 21.9 Obesity E66.9 History of alcoholism F10.21 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
== END 2025-04-22 13:46 | disposition home or self-care (01) ==
LOC: HO.MAMMO 13:45
PROVIDERS: PCP Obstetrics & Gynecology; Visit Provider Internal Medicine
DX: Z12.31 Encounter for screening mammogram for malignant neoplasm of breast (principal)
CPT/HCPCS: 77063; 77067